=== PATIENT | female | born 1955 | race Caucasian/White ===

== ENCOUNTER 2017-02-28 20:56 | Inpatient (IN) | payer MEDICAID, OTHER ==
--- NOTE | 2017-02-28 22:13 | ED PDOC ---
"Arrival/HPI <Jesse Craig - Last Filed: 02/28/17 23:20> - General Historian: Patient <Willie Beauchamp - Last Filed: 03/01/17 17:12> - General Chief Complaint: Abdominal Pain Time Seen by Provider: 02/28/17 21:49 - History of Present Illness Narrative History of Present Illness (Text): 02/28/17 21:55 61 y/o female, pmh including htn/hypothyroidism, allergic to nsaids/albuterol, c /o epigastric and rt. sided abdominal pain started this morning. Pt. stated that she woke up this morning at 4am with rt. sided abdominal pain, associated with multiple episodes of diarrhea, no fever or chills, no chest pain or shortness of breath, no rash, no numbness or tingling, no other medical or psychological complaints. (Willie Beauchamp) Past Medical History - Provider Review Nursing Documentation Reviewed: Yes - Cardiac Hx Cardiac Disorders: Yes Hx Hypertension: Yes - Endocrine/Metabolic Hx Endocrine Disorders: Yes Hx Hypothyroidism: Yes - Psychiatric Hx Substance Use: No <Willie Beauchamp - Last Filed: 03/01/17 17:12> Family/Social History - Physician Review Nursing Documentation Reviewed: Yes Family/Social History: Unknown Family HX Smoking Status: Never Smoked Hx Alcohol Use: No Hx Substance Use: No <Willie Beauchamp - Last Filed: 03/01/17 17:12> Allergies/Home Meds <Jesse Craig - Last Filed: 02/28/17 23:20> <Willie Beauchamp - Last Filed: 03/01/17 17:12> Allergies/Adverse Reactions: Allergies albuterol [From Ventolin HFA] Allergy (Verified 02/28/17 21:10) SHORTNESS OF BREATH aspirin Allergy (Verified 02/28/17 21:10) SHORTNESS OF BREATH ibuprofen Allergy (Verified 02/28/17 21:10) RASH Home Medications: Home Meds Medication Instructions Recorded Confirmed Levothyroxine [Synthroid] 125 mcg PO DAILY 02/28/17 02/28/17 Losartan Potassium 50 mg PO BID 02/28/17 02/28/17 Review of Systems - Review of Systems Constitutional: absent: Fatigue, Fevers Eyes: absent: Vision Changes ENT: absent: Hearing Changes Respiratory: absent: SOB, Cough Cardiovascular: absent: Chest Pain Gastrointestinal: Abdominal Pain, Diarrhea, Nausea, Vomiting. absent: Constipation Skin: absent: Rash, Pruritis Neurological: absent: Headache, Dizziness Psychiatric: absent: Anxiety, Depression <Willie Beauchamp - Last Filed: 03/01/17 17:12> Physical Exam Vital Signs Reviewed: Yes Temperature: Afebrile Blood Pressure: Normal Pulse: Regular Respiratory Rate: Normal Appearance: Positive for: Well-Appearing, Non-Toxic, Comfortable Pain Distress: Mild Mental Status: Positive for: Alert and Oriented X 3 - Systems Exam Head: Present: Atraumatic, Normocephalic Pupils: Present: PERRL Extroacular Muscles: Present: EOMI Conjunctiva: Present: Normal Mouth: Present: Moist Mucous Membranes Neck: Present: Normal Range of Motion Respiratory/Chest: Present: Clear to Auscultation, Good Air Exchange. No: Respiratory Distress, Accessory Muscle Use Cardiovascular: Present: Regular Rate and Rhythm, Normal S1, S2. No: Murmurs Abdomen: Present: Tenderness (+Rt. sided abdomen ), Normal Bowel Sounds. No: Distention, Peritoneal Signs, Rebound, Guarding Back: Present: Normal Inspection Upper Extremity: Present: Normal Inspection. No: Cyanosis, Edema Lower Extremity: Present: Normal Inspection. No: Edema Neurological: Present: GCS=15, Speech Normal, Motor Func Grossly Intact, Gait Normal, Memory Normal Skin: Present: Warm, Dry, Normal Color. No: Rashes Psychiatric: Present: Alert, Oriented x 3, Normal Insight, Normal Concentration <Willie Beauchamp - Last Filed: 03/01/17 17:12> Vital Signs Temp Pulse Resp BP Pulse Ox 03/01/17 03:20 84 18 135/82 98 02/28/17 23:01 85 18 135/78 98 02/28/17 21:13 98.7 F 86 20 134/88 97 Medical Decision Making <Jesse Craig - Last Filed: 02/28/17 23:20> - RAD Interpretation Underground Repairer: Radiologist - EKG Interpretation Interpreted by ED Physician: Yes Type: 12 lead EKG Comparison: No previous EKG avail. <Willie Beauchamp - Last Filed: 03/01/17 17:12> ED Course and Treatment: 02/28/17 22:21 -Labs/ua/lipase/cardiac enzyme -EKG -CXR -CT Abdomen and pelvis -Gallbladder sonogram -IVF/pepcid -Observe and reassess 03/01/17 02:57 -EKG: NSR @ 85 BPM, no ST elevation or depression, T wave inversion on lead I and aVL -Gallbladder sonogram: Cholelithiasis and gallbladder wall thickening. No sonographic London's sign. Correlate clinically. -Chest xray show no active disease -CT abdomen and pelvis show: Partially contracted gallbladder with large gallstone gallbladder wall thickening and pericholecystic inflammatory changes representing acute on chronic cholecystitis in view of patient's right-sided pain. Correlation with patient's clinical data is recommended. -IV zosyn ordered. -Medicine and surgical team paged. 03/01/17 03:03 -I spoke to Dr. Craig about this case in detail, agreed on treatment and admission plan. -I spoke to DR. White and medical secretary teacher Dr. Christopher, will come to evaluate the patient. -Attempted to call the assembler surgical garment and surgical attending Dr. Barakat but no one call back. 03/01/17 03:47 -residential mortgage manager Dr. Livier rader called back, discussed about the case, awared of the case, discussed that she will notify him as we are unable to get a hold of the surgical attending, Dr. Craig awared. (Willie Beauchamp) - Lab Interpretations Lab Results: 02/28/17 22:13 02/28/17 22:13 Lab Results 02/28/17 22:13: WBC 8.8, RBC 4.55, Hgb 12.7, Hct 39.8, MCV 87.5, MCH 27.9, MCHC 31.9, RDW 14.0, Plt Count 311, MPV 9.8, Gran % 66.6, Lymph % (Auto) 23.5, [place] % (Auto) 8.8 H, Eos % (Auto) 1.0 L, Baso % (Auto) 0.1, Gran # 5.86, Lymph # 2.1 , [place] # 0.8 H, Eos # 0.1, Baso # 0.01 02/28/17 22:13: Sodium 140, Potassium 4.1, Chloride 104, Carbon Dioxide 27, Anion Gap 13, BUN 5 L, Creatinine 0.5 L, Est GFR ( Amer) > 60, Est GFR ( Non-Af Amer) > 60, Random Glucose 126 H, Calcium 9.4, Magnesium 1.8, Total Bilirubin 0.7, AST 24, ALT 25, Alkaline Phosphatase 124, Lactate Dehydrogenase 423, Total Creatine Kinase 42, Troponin I < 0.01, Total Protein 7.8, Albumin 3.7 , Globulin 4.1, Albumin/Globulin Ratio 0.9 L, Lipase 81 - RAD Interpretation Radiology Orders: 02/28/17 22:14 CHEST PORTABLE [RAD] Stat 02/28/17 22:18 GALLBLADDER & COMMON DUCT [US] Stat 03/01/17 01:14 ABDOMEN & PELVIS [ABD & PELVIS IV CONTRAST ONLY] [CT] Stat 02/28/17 22:14 CHEST PORTABLE [RAD] Stat 02/28/17 22:18 GALLBLADDER & COMMON DUCT [US] Stat 02/28/17 22:19 ABDOMEN & PELVIS [ABD PELVIS PO & IV CONTRAST] [CT] Stat Chest xray: no acute findings. Gallbladder sonogram: FINDINGS: Liver: Liver measures 19.5 CM longitudinally. Diffusely increased echogenicity consistent with fatty infiltration. No intrahepatic bile duct dilation. Gallbladder: Cholelithiasis. 3.1 CM gallstone. No sonographic London's sign. Gallbladder wall thickening with the wall measuring up to 4.6 mm in thickness. Common bile duct: Common bile duct measures 6.6 mm. No stones. No dilation. Pancreas: Unremarkable as visualized. Right kidney: Right kidney measures 11.4 CM longitudinally. No stones. No hydronephrosis. IMPRESSION: Cholelithiasis and gallbladder wall thickening. No sonographic London's sign. Correlate clinically. Thank you for allowing us to participate in the care of your patient. Dictated and Authenticated by: Bart Thomas MD 02/28/2017 11:50 PM Eastern Time ([place] & [place]) CT abdomen and pelvis: FINDINGS: Lower thorax: There is groundglass opacity to the lung bases with areas of hyperlucency representing reactive airway disease. Correlation with patient's hydration status versus mild failure is recommended if clinically suspected. Possible small hiatal hernia. ABDOMEN: Liver: Enlarged fatty liver. Gallbladder and bile ducts: Partially contracted gallbladder with large gallstone gallbladder wall thickening and pericholecystic inflammatory changes representing acute on chronic cholecystitis in view of patient's right-sided pain. Correlation with patient's clinical data is recommended. Pancreas: Unremarkable. No mass. No ductal dilation. Spleen: Unremarkable. No splenomegaly. Adrenals: Unremarkable. No mass. Kidneys and ureters: Retroaortic left renal vein.The aorta is normal in caliber and there are no periaortic collections. No hydronephrosis. MEENANELY | Final Radiology Report CONFIDENTIALITY STATEMENT This report is intended only for use by the referring physician, and only in accordance with law. If you received this in error, call [phone]. Page 2 of 2 Stomach and bowel: Unremarkable. No obstruction. No mucosal thickening. Appendix: The appendix is not seen. PELVIS: Bladder: Partially distended bladder. Reproductive: Uterus is seen. ABDOMEN and PELVIS: Intraperitoneal space: Unremarkable. No free air. No significant fluid collection. Bones/joints: There are anterior flowing osteophytes bridging more than 4 vertebral bodies suggestive of dish. No acute fracture. No dislocation. Soft tissues: Nonspecific history of back edema. Nonspecific infiltration of bilateral gluteal subcutaneous soft tissues and suprapubic region. There is a fat-containing umbilical hernia. Vasculature: See above. Lymph nodes: Unremarkable. No enlarged lymph nodes. IMPRESSION: 1. Partially contracted gallbladder with large gallstone gallbladder wall thickening and pericholecystic inflammatory changes representing acute on chronic cholecystitis in view of patient's right-sided pain. Correlation with patient's clinical data is recommended. Thank you for allowing us to participate in the care of your patient. Dictated and Authenticated by: Quintin Huggins MD 03/01/2017 2:30 AM Eastern Time ([place] & [place]) (Willie Beauchamp) - EKG Interpretation EKG Interpretation (Text): 02/28/17 23:03 -EKG: NSR @ 85 BPM, no ST elevation or depression, T wave inversion on lead I and aVL (Willie Beauchamp) - Medication Orders Current Medication Orders: Acetaminophen (Tylenol 325mg Tab) 650 mg PO Q4 PRN PRN Reason: Pain, Mild (1-3) Arformoterol Tartrate (Brovana) 15 mcg IH [id number] [facility] Last Admin: 03/01/17 08:06 Dose: 15 mcg Budesonide (Pulmicort Respules) 0.5 mg IH [id number] JIM Last Admin: 03/01/17 08:06 Dose: 0.5 mg Famotidine (Pepcid) 40 mg PO HS JIM Heparin Sodium (Porcine) (Heparin) 5,000 units SC Q8 JIM PRN Reason: Protocol Last Admin: 03/01/17 05:13 Dose: 5,000 units Subcutaneous Administrations Document 03/01/17 05:13 BN (Rec: 03/01/17 05:[address] [id number] Injection Site MAR Injection Site Right Arm Charges for Administration # of Subcutaneous Administrations 1 Hydralazine HCl (Apresoline) 10 mg IVP Q6 PRN PRN Reason: Systolic Blood Pressure Lactated Ringer's (Lactated Ringer's) 1,000 mls @ 100 mls/hr IV .Q10H [facility] Last Admin: 03/01/17 04:44 Dose: 100 mls/hr eMAR Start Stop Document 03/01/17 04:44 BN (Rec: 03/01/17 04:[address] [id number]) Intravenous Solution Start Date 03/01/17 Start Time 04:44 Ceftriaxone Sodium (Rocephin 2 Gm Ivpb) 2 gm in 100 mls @ 100 mls/hr IVPB DAILY JIM PRN Reason: Protocol Last Admin: 03/01/17 11:07 Dose: 100 mls/hr eMAR Start Stop Document 03/01/17 11:07 TERE (Rec: 03/01/17 11:[address] [id number]) Intravenous Solution Start Date 03/01/17 Start Time 11:07 Levothyroxine Sodium (Synthroid) 125 mcg PO ACB [facility] Last Admin: 03/01/17 09:25 Dose: 125 mcg Losartan Potassium (Cozaar) 50 mg PO BID JIM Last Admin: 03/01/17 09:26 Dose: 50 mg Metronidazole (Flagyl) 500 mg PO Q8 JIM PRN Reason: Protocol Last Admin: 03/01/17 09:25 Dose: 500 mg Morphine Sulfate (Morphine) 2 mg IVP Q4H PRN PRN Reason: Pain, moderate (4-7) Morphine Sulfate (Morphine) 4 mg IVP Q4H PRN PRN Reason: Pain, severe (8-10) Discontinued Medications Famotidine (Pepcid) 20 mg IVP STAT STA Stop: 02/28/17 22:15 Last Admin: 02/28/17 23:52 Dose: 20 mg IVP Administration Document 02/28/17 23:52 SS (Rec: 02/28/17 23:52 SS [id number]) Charges for Administration # of IVP Administrations 1 Sodium Chloride (Sodium Chloride 0.9%) 1,000 mls @ 100 mls/hr IV .Q10H JIM Last Admin: 02/28/17 23:53 Dose: 100 mls/hr eMAR Start Stop Document 02/28/17 23:53 SS (Rec: 02/28/17 23:53 SS [id number]) Intravenous Solution Start Date 02/28/17 Start Time 23:53 Piperacillin Sod/Tazobactam Sod (Zosyn 3.375 In Ns 100ml) 100 mls @ 200 mls/hr IVPB STAT STA PRN Reason: Protocol Stop: 03/01/17 03:00 Last Admin: 03/01/17 03:17 Dose: 200 mls/hr eMAR Start Stop Document 03/01/17 03:17 SS (Rec: 03/01/17 03:18 SS [id number]) Intravenous Solution Start Date 03/01/17 Start Time 03:18 End Date 03/01/17 End time 03:48 Total Infusion Time 30 Morphine Sulfate (Morphine) 4 mg IVP STAT STA Stop: 03/01/17 03:06 - PA / KNITTING SUPERVISOR / Resident Statement MARC has reviewed & agrees with the documentation as recorded. <Jesse Craig - Last Filed: 02/28/17 23:20> - PA / KNITTING SUPERVISOR / Resident Statement MD/DO has reviewed & agrees with the documentation as recorded. <Willie Beauchamp - Last Filed: 03/01/17 17:12> Disposition/Present on Arrival <Jesse Craig - Last Filed: 02/28/17 23:20> - Present on Arrival Any Indicators Present on Arrival: No History of DVT/PE: No History of Uncontrolled Diabetes: No Urinary Catheter: No History of Decub. Ulcer: No History Surgical Site Infection Following: None - Disposition Have Diagnosis and Disposition been Completed?: Yes Disposition Time: 02:35 Patient Plan: Admission <Willie Beauchamp - Last Filed: 03/01/17 17:12> - Disposition Diagnosis: Cholecystitis Disposition: HOSPITALIZED Patient Problems: Current Active Problems Problem Status Onset Cholecystitis Acute Condition: STABLE"
[2017-02-28] MEDS ORDERED: Sodium Chloride 0.9% 1,000 ML IV SCH (22:15)
[2017-02-28] MEDS ORDERED: Iohexol 240 (50 ml) ONE (22:23)
[2017-02-28 23:01] LABS: BASO # 0.01 K/mm3 (0.0-2.0); BASO % 0.1 % (0.0-3.0); EOS # 0.1 (0.0-0.7); GRAN # 5.86 (1.4-6.5); GRAN % 66.6 % (50.0-68.0); HEMOGLOBIN 12.7 g/dL (12.0-16.0); LYMPH # 2.1 (1.2-3.4); LYMPH % 23.5 % (22.0-35.0); MEAN CELL VOLUME 87.5 fl (80.0-105.0); MEAN CORPUSCULAR HEMOGLOBIN 27.9 pg (25.0-35.0); MEAN CORPUSCULAR HGB CONC 31.9 g/dl (31.0-37.0); MEAN PLATELET VOLUME 9.8 fl (7.0-11.0); MONO # 0.8 (0.1-0.6); MONO % 8.8 % (1.0-6.0); RBC 4.55 10^6/uL (3.5-6.1); WHITE BLOOD COUNT 8.8 10^3/ul (4.5-11.0)
[2017-02-28 23:12] LABS: ALB/GLOB RATIO 0.9 (1.1-1.8); ALBUMIN 3.7 g/dL (3.0-4.8); ALT/SGPT 25 U/L (7-56); AST/SGOT 24 U/L (14-36); BLOOD UREA NITROGEN 5 mg/dL (7-21); CALCIUM 9.4 mg/dL (8.4-10.5); GFR AFRICAN-AMERICAN > 60; GFR NON-AFRICAN AMERICAN > 60; LIPASE 81 U/L (23-300); MAGNESIUM 1.8 mg/dL (1.7-2.2)
[2017-02-28 23:25] LABS: TROPONIN I < 0.01 ng/mL
--- NOTE | 2017-02-28 23:50 | US ---
EXAM: US Abdomen Limited, Right Upper Quadrant CLINICAL HISTORY: 61 years old, female; Pain; Abdominal pain; Generalized; Additional info: Ruq pain TECHNIQUE: Real-time ultrasound of the right upper quadrant with image documentation. COMPARISON: No relevant prior studies available. FINDINGS: Liver: Liver measures 19.5 CM longitudinally. Diffusely increased echogenicity consistent with fatty infiltration. No intrahepatic bile duct dilation. Gallbladder: Cholelithiasis. 3.1 CM gallstone. No sonographic London's sign. Gallbladder wall thickening with the wall measuring up to 4.6 mm in thickness. Common bile duct: Common bile duct measures 6.6 mm. No stones. No dilation. Pancreas: Unremarkable as visualized. Right kidney: Right kidney measures 11.4 CM longitudinally. No stones. No hydronephrosis. IMPRESSION: Cholelithiasis and gallbladder wall thickening. No sonographic London's sign. Correlate clinically.
[2017-03-01] MEDS ORDERED: Iohexol 350 MG/100 ML VIAL ONE (00:57)
[2017-03-01] MEDS ORDERED: Piperacillin/Tazobact 3.375 gm 100 ML IVPB STA (02:31)
--- NOTE | 2017-03-01 03:04 | CP.PCM.HP ---
<Keron Coulter - Last Filed: 03/01/17 04:09> History of Present Illness - History of Present Illness History of Present Illness: CC: Abdominal Pain Subjective: HPI: Patient is a 61 year old male with past medical history of hypertension, hypothyroidism, and asthma who presents to the emergency department for evaluation and treatment of abdominal pain which began yesterday morning with no specific provoking event. The pain originates in the right upper quadrant/ flank region and radiates to the right lower quadrant. It is characterized as being a "tightness". Denies association with PO intake. Admits to associated 12 bout of nonbloody bowel movements. States that she has had this type of pain before in [place] which resolved with no intervention at that time. Denies sick contacts. Patient denies intractable headache, fever, chills, dizziness, blurry vision, ringing in the ears, chest pain, shortness of breath, nausea, vomiting, constipation, and urinary symptoms. ROS: 12 point review of systems negative except as indicated in HPI PMHx: hypertension, hypothyroidism, and asthma PSHx: denies Family Hx: noncontributory Social Hx: denies ETOH use, denies tobacco use, denies illicit drug use Medications: Please see medication reconciliation PMD: does not have a PMD in [facility]: brings medications from [place] in bulk when visiting [place] Physical Examination: - Constitutional Appears: Non-toxic, No Acute Distress - Head Exam Head Exam: atraumatic, normocephalic - Eye Exam Eye Exam: Normal appearance, PERRL. absent: Scleral icterus - ENT Exam ENT Exam: Mucous Membranes Moist - Neck Exam Neck exam: Normal Inspection - Respiratory Exam Respiratory Exam: Normal Breathing Pattern - Cardiovascular Exam Cardiovascular Exam: +S1, +S2. absent: Gallop, JVD - GI/Abdominal Exam GI & Abdominal Exam: Normal Bowel Sounds, + murphys sign absent: Distended, Guarding, Pulsatile Mass, Rebound, Rigid - Extremities Exam Extremities exam: Negative for: calf tenderness - Neurological Exam Neurological exam: Patient is awake, alert, responds to verbal stimuli, answers questions appropriately, follows commands, and moves extremities past midline - Psychiatric Exam Psychiatric exam: Normal Affect, Normal Mood - Skin Skin Exam: warm and dry Assessment and Plan: Patient is a 61 year old male with past medical history of hypertension and hypothyroidism who presents to the emergency department for evaluation and treatment of abdominal pain. Patient was given morphine, IVF, and zosyn in the ED thus far. Abdominal Pain - secondary to cholecystitis - abdominal ultrasound- Cholelithiasis and gallbladder wall thickening. No sonographic London's sign - abdomen/pelvis CT ordered by ED physician-Partially contracted gallbladder with large gallstone gallbladder wall thickening and pericholecystic inflammatory changes representing acute on chronic cholecystitis - NPO - LR NS @100 - pain control- tylenol mild pain, morphine 2 mg q4h moderate pain, morphine 4mg q4h prn severe pain - flagyl 500mg q8 - general surgery consulted- appreciate recommendations Hx of Htn - c/w home losartan - hydralazine 5mg IV q6 prn SBP > 180, holding parameters- do not administer if HR is > 100 bpm Hx of Hypothyrodism - c/w home levothyroxine - TSH pending Hx of Asthma - allergic to albuterol - c/w fluticasone and salmeterol Prophylaxis - DVT ppx- subq heparin as per rosalind prediction score - GI ppx- famotidine Patient case discussed with and plan approved by attending physician. 03/01/17 03:00 Present on Admission - Present on Admission Any Indicators Present on Admission: No Past Patient History - Past Social History Smoking Status: Never Smoked - CARDIAC Hx Cardiac Disorders: Yes Hx Hypertension: Yes - ENDOCRINE/METABOLIC Hx Endocrine Disorders: Yes Hx Hypothyroidism: Yes - PSYCHIATRIC Hx Substance Use: No Meds Allergies/Adverse Reactions: Allergies Allergy/AdvReac Type Severity Reaction Status Date / Time albuterol [From Ventolin HFA] Allergy SHORTNESS Verified 02/28/17 21:10 OF BREATH aspirin Allergy SHORTNESS Verified 02/28/17 21:10 OF BREATH ibuprofen Allergy RASH Verified 02/28/17 21:10 Results - Vital Signs Recent Vital Signs: Last Vital Signs Temp 98.7 F 02/28/17 21:13 Pulse 86 02/28/17 21:13 Resp 20 02/28/17 21:13 BP 134/88 02/28/17 21:13 Pulse Ox 97 02/28/17 21:13 - Labs Result Diagrams: 02/28/17 22:13 02/28/17 22:13 Labs: Laboratory Results - last 24 hr 02/28/17 02/28/17 22:13 22:13 WBC 8.8 RBC 4.55 Hgb 12.7 Hct 39.8 MCV 87.5 MCH 27.9 MCHC 31.9 RDW 14.0 Plt Count 311 MPV 9.8 Gran % 66.6 Lymph % (Auto) 23.5 [place] % (Auto) 8.8 H Eos % (Auto) 1.0 L Baso % (Auto) 0.1 Gran # 5.86 Lymph # 2.1 [place] # 0.8 H Eos # 0.1 Baso # 0.01 Sodium 140 Potassium 4.1 Chloride 104 Carbon Dioxide 27 Anion Gap 13 BUN 5 L Creatinine 0.5 L Est GFR ( Amer) > 60 Est GFR (Non-Af Amer) > 60 Random Glucose 126 H Calcium 9.4 Magnesium 1.8 Total Bilirubin 0.7 AST 24 ALT 25 Alkaline Phosphatase 124 Lactate Dehydrogenase 423 Total Creatine Kinase 42 Troponin I < 0.01 Total Protein 7.8 Albumin 3.7 Globulin 4.1 Albumin/Globulin Ratio 0.9 L Lipase 81 <uJan Antonio White Q - Last Filed: 03/01/17 05:06> Results - Vital Signs Recent Vital Signs: Last Vital Signs Temp 98.7 F 02/28/17 21:13 Pulse 84 03/01/17 03:20 Resp 18 03/01/17 03:20 BP 135/82 03/01/17 03:20 Pulse Ox 98 03/01/17 03:20 - Labs Result Diagrams: 02/28/17 22:13 02/28/17 22:13 Attending/Attestation - Attestation I have personally seen and examined this patient.: Yes I have fully participated in the care of the patient.: Yes I have reviewed all pertinent clinical information: Yes
[2017-03-01] MEDS ORDERED: Morphine 4 mg/ml ISec IVP STA (03:05)
[2017-03-01] MEDS ORDERED: Morphine 2 mg/ml ISec IVP PRN (03:47)
[2017-03-01] MEDS ORDERED: Morphine 5 MG/ML SYRINGE IVP PRN (03:48)
[2017-03-01] MEDS ORDERED: Lactated Ringer's 1,000 ML IV SCH (04:00)
[2017-03-01] MEDS: Lactated Ringer's 1,000 ML IV SCH (04:44)
[2017-03-01] MEDS: Budesonide 0.5 mg/2 ml Inhal Susp UD IH SCH ×2 (08:06→19:31)
[2017-03-01] MEDS: Arformoterol 15 mcg/2 ml Inh Sol IH SCH ×2 (08:06→19:31)
[2017-03-01 08:28] LABS: BASO # 0.02 K/mm3 (0.0-2.0); BASO % 0.2 % (0.0-3.0); EOS # 0.1 (0.0-0.7); EOS % 0.9 % (1.5-5.0); GRAN # 6.28 (1.4-6.5); GRAN % 63.9 % (50.0-68.0); HEMOGLOBIN 12.4 g/dL (12.0-16.0); LYMPH # 2.7 (1.2-3.4); LYMPH % 27.5 % (22.0-35.0); MEAN CELL VOLUME 88.1 fl (80.0-105.0); MEAN CORPUSCULAR HEMOGLOBIN 27.3 pg (25.0-35.0); MEAN PLATELET VOLUME 9.6 fl (7.0-11.0); MONO # 0.7 (0.1-0.6); MONO % 7.5 % (1.0-6.0); RBC 4.54 10^6/uL (3.5-6.1); WHITE BLOOD COUNT 9.8 10^3/ul (4.5-11.0)
[2017-03-01 08:37] LABS: ALB/GLOB RATIO 0.9 (1.1-1.8); ALBUMIN 3.9 g/dL (3.0-4.8); ALT/SGPT 28 U/L (7-56); AST/SGOT 24 U/L (14-36); BLOOD UREA NITROGEN 5 mg/dL (7-21); CALCIUM 9.6 mg/dL (8.4-10.5); GFR AFRICAN-AMERICAN > 60; GFR NON-AFRICAN AMERICAN > 60; HDL CHOLESTEROL 34 mg/dL (29-60)
[2017-03-01 08:48] LABS: LDL CHOLESTEROL 72 mg/dL (0-129)
[2017-03-01] MEDS: Levothyroxine 125 MCG TAB PO SCH (09:25)
--- NOTE | 2017-03-01 09:42 | CT ---
PROCEDURE: CT abdomen pelvis dated 03/01/2017 HISTORY: Right sided abdominal pain COMPARISON: Correlation made with gallbladder ultrasound obtained 02/28/2017 TECHNIQUE: Contiguous helical/transaxial images of the abdomen and pelvis. Oral contrast was administered. No IV contrast given. Coronal and Sagittal reformats generated. Radiation dose: Total exam DLP = 1124.02 mGy-cm. This CT exam was performed using one or more of the following dose reduction techniques: Automated exposure control, adjustment of the mA and/or kV according to patient size, and/or use of iterative reconstruction technique. Contrast dose: 96 cc Omnipaque 350 contrast material a FINDINGS: LOWER THORAX: There is elevation right hemidiaphragm mild possibly due to eventration. Mild passive atelectasis both lower lung winn. There also appears to be some linear scarring/ atelectasis in the lingular region. No evidence of effusion or basilar pneumothorax. Heart size is within range of normal. No evidence of significant pericardial effusion. . Tiny hiatal hernia. LIVER: Liver is mildly enlarged measuring nearly 20 cm in CC dimension. Liver demonstrates very minor fatty hepatic infiltration without masses collections or calcifications. . Portal and splenic veins are opacified. GALLBLADDER AND BILE DUCTS: There is an intraluminal gallbladder calculus with wall thickening and mild pericholecystic infiltration changes. Findings may represent acute or chronic cholecystitis. Clinical correlation recommended. . PANCREAS: Unremarkable. No mass. No ductal dilatation. SPLEEN: Spleen is borderline enlarged measuring approximately 12.5 cm in AP dimension. ADRENALS: No adrenal lesions seen. . KIDNEYS AND URETERS: Kidneys demonstrate symmetric nephrograms. No evidence of nephrolithiasis or hydronephrosis. Retro aortic left renal vein BLADDER: Urinary bladder is incompletely distended which may account for slight thick-walled appearance. Possibility of a cystitis not excluded. . REPRODUCTIVE: Unremarkable as visualized. APPENDIX: Appendix not seen with complete certainty however no obvious inflammatory changes right lower quadrant of the abdomen. BOWEL: Evaluation of the bowel is somewhat limited due to partial opacification. Stomach is incompletely distended which its felt to account for slight thick-walled appearance. Visualized loops of small bowel exhibit abnormal contour and caliber. No evidence acute mechanical small bowel obstruction. Oral contrast material has extended into the colon to approximately the level of the mid descending colon region. . No definitive evidence of abnormal mural wall thickening. . PERITONEUM: Unremarkable. No fluid collection. No free air. . Small fat containing umbilical hernia. LYMPH NODES: Unremarkable. No enlarged lymph nodes. VASCULATURE: Unremarkable. No aortic aneurysm. BONES: Mild multilevel degenerative spondylosis of the lower thoracic and lumbar spine (suspected DISH involving several lower thoracic segments). There are no acute compression fractures no retropulsed fragments are over the OTHER FINDINGS: Note made of some mild infiltration changes within subcutaneous fat lower anterior abdominal wall and the bilateral gluteal regions nonspecific. IMPRESSION: Cholelithiasis with mild gallbladder wall thickening in some vague infiltration changes in the adjacent mesenteric. Findings may represent acute or chronic cholecystitis. Clinical correlation recommended. Mild hepatomegaly with some minor fatty hepatic infiltration. Borderline splenomegaly. Preliminary results provided by overnight radiology service
--- NOTE | 2017-03-01 09:56 | CP.PCM.CON ---
<Livier Roberts - Last Filed: 03/01/17 10:22> History of Present Illness - History of Present Illness History of Present Illness: GENERAL SURGERY CONSULT NOTE FOR DR. CUNHA 61yo F with PMHx of HTN, hypothyroidism, asthma presents to the ED with abdominal pain. The pain began yesterday and is located in the RUQ. It is not associated with eating. She denies nausea or vomiting but had 12 episodes of non -bloody BMs yesterday. She has had similar pain in the past in [place] which resolved without any intervention. PMHx: HTN, hypothyroidism, asthma Surgeries: none Allergies: albuterol, aspirin, ibuprofen Social history: denies ETOH use, tobacco use, illicit drug use Review of Systems - Review of Systems All systems: reviewed and no additional remarkable complaints except (as per HPI ) Past Patient History - Past Social History Smoking Status: Never Smoked - CARDIAC Hx Cardiac Disorders: Yes Hx Hypertension: Yes - PULMONARY Hx Respiratory Disorders: Yes Hx Asthma: Yes - ENDOCRINE/METABOLIC Hx Endocrine Disorders: Yes Hx Hypothyroidism: Yes - MUSCULOSKELETAL/RHEUMATOLOGICAL Hx Falls: No - PSYCHIATRIC Hx Substance Use: No Meds Allergies/Adverse Reactions: Allergies Allergy/AdvReac Type Severity Reaction Status Date / Time albuterol [From Ventolin HFA] Allergy SHORTNESS Verified 02/28/17 21:10 OF BREATH aspirin Allergy SHORTNESS Verified 02/28/17 21:10 OF BREATH ibuprofen Allergy RASH Verified 02/28/17 21:10 - Medications Medications: Current Medications Acetaminophen (Tylenol 325mg Tab) 650 mg PO Q4 PRN PRN Reason: Pain, Mild (1-3) Arformoterol Tartrate (Brovana) 15 mcg IH [id number] [facility] Last Admin: 03/01/17 08:06 Dose: 15 mcg Budesonide (Pulmicort Respules) 0.5 mg IH [id number] [facility] Last Admin: 03/01/17 08:06 Dose: 0.5 mg Famotidine (Pepcid) 40 mg PO HS [facility] Heparin Sodium (Porcine) (Heparin) 5,000 units SC Q8 [facility] PRN Reason: Protocol Last Admin: 03/01/17 05:13 Dose: 5,000 units Hydralazine HCl (Apresoline) 10 mg IVP Q6 PRN PRN Reason: Systolic Blood Pressure Lactated Ringer's (Lactated Ringer's) 1,000 mls @ 100 mls/hr IV .Q10H [facility] Last Admin: 03/01/17 04:44 Dose: 100 mls/hr Ceftriaxone Sodium (Rocephin 2 Gm Ivpb) 2 gm in 100 mls @ 100 mls/hr IVPB DAILY [facility] PRN Reason: Protocol Levothyroxine Sodium (Synthroid) 125 mcg PO ACB [facility] Last Admin: 03/01/17 09:25 Dose: 125 mcg Losartan Potassium (Cozaar) 50 mg PO BID [facility] Last Admin: 03/01/17 09:26 Dose: 50 mg Metronidazole (Flagyl) 500 mg PO Q8 [facility] PRN Reason: Protocol Last Admin: 03/01/17 09:25 Dose: 500 mg Morphine Sulfate (Morphine) 2 mg IVP Q4H PRN PRN Reason: Pain, moderate (4-7) Morphine Sulfate (Morphine) 4 mg IVP Q4H PRN PRN Reason: Pain, severe (8-10) Physical Exam - Constitutional Appears: Well, Non-toxic, No Acute Distress - Head Exam Head Exam: ATRAUMATIC, NORMAL INSPECTION - Eye Exam Eye Exam: EOMI, Normal appearance - Respiratory Exam Respiratory Exam: NORMAL BREATHING PATTERN. absent: Respiratory Distress - Cardiovascular Exam Cardiovascular Exam: +S1, +S2 - GI/Abdominal Exam GI & Abdominal Exam: Soft, Tenderness (tender in RUQ). absent: Diminished Bowel Sounds, Distended, Firm, Guarding, Rebound, Rigid - Extremities Exam Additional comments: +1 pitting edema in bilateral LE - Neurological Exam Neurological exam: Alert, CN II-XII Intact, Oriented x3 - Psychiatric Exam Psychiatric exam: Normal Affect, Normal Mood Results - Vital Signs Recent Vital Signs: Last Vital Signs Temp 98.3 F 03/01/17 07:56 Pulse 83 03/01/17 08:09 Resp 20 03/01/17 07:56 BP 129/54 L 03/01/17 07:56 Pulse Ox 100 03/01/17 07:56 - Labs Result Diagrams: 03/01/17 08:00 03/01/17 08:00 Labs: Laboratory Results - last 24 hr 03/01/17 03/01/17 03/01/17 08:00 08:00 08:00 WBC 9.8 RBC 4.54 Hgb 12.4 Hct 40.0 MCV 88.1 MCH 27.3 MCHC 31.0 RDW 14.0 Plt Count 332 MPV 9.6 Gran % 63.9 Lymph % (Auto) 27.5 Crosby % (Auto) 7.5 H Eos % (Auto) 0.9 L Baso % (Auto) 0.2 Gran # 6.28 Lymph # 2.7 Crosby # 0.7 H Eos # 0.1 Baso # 0.02 Sodium 141 Potassium 4.2 Chloride 103 Carbon Dioxide 28 Anion Gap 14 BUN 5 L Creatinine 0.5 L Est GFR ( Amer) > 60 Est GFR (Non-Af Amer) > 60 Random Glucose 102 Calcium 9.6 Total Bilirubin 0.8 AST 24 ALT 28 Alkaline Phosphatase 128 H Total Protein 8.2 Albumin 3.9 Globulin 4.3 Albumin/Globulin Ratio 0.9 L Triglycerides 101 Cholesterol 128 L LDL Cholesterol Direct 72 HDL Cholesterol 34 TSH 3rd Generation 3.80 Assessment & Plan - Assessment and Plan (Free Text) Assessment: 61yo F with PMHx of HTN, hypothyroidism, asthma presents to the ED with abdominal pain and was admitted for symptomatic cholelithiasis. - Afebrile, VSS - No leukocytosis, Bilirubin and LFTs WNL - US: cholelithiasis, 3.1cm gallstone. No sonographic [place] sign, GB wall thickening 4.6mm, CBD 6.6mm - Patient tender in RUQ and had similar episodes in the past - OR today for laparoscopic cholecystectomy, possible open - NPO - Hold heparin - Discussed plan with Dr. Guerline Roberts PGY-3 <Ousmane Cunha - Last Filed: 03/01/17 20:12> Meds - Medications Medications: Current Medications Acetaminophen (Tylenol 325mg Tab) 650 mg PO Q4 PRN PRN Reason: Pain, Mild (1-3) Arformoterol Tartrate (Brovana) 15 mcg IH [id number] [facility] Last Admin: 03/01/17 19:31 Dose: 15 mcg Budesonide (Pulmicort Respules) 0.5 mg IH [id number] [facility] Last Admin: 03/01/17 19:31 Dose: 0.5 mg Famotidine (Pepcid) 40 mg PO HS [facility] Heparin Sodium (Porcine) (Heparin) 5,000 units SC Q8 [facility] PRN Reason: Protocol Last Admin: 03/01/17 05:13 Dose: 5,000 units Hydralazine HCl (Apresoline) 10 mg IVP Q6 PRN PRN Reason: Systolic Blood Pressure Lactated Ringer's (Lactated Ringer's) 1,000 mls @ 100 mls/hr IV .Q10H [facility] Last Admin: 03/01/17 04:44 Dose: 100 mls/hr Ceftriaxone Sodium (Rocephin 2 Gm Ivpb) 2 gm in 100 mls @ 100 mls/hr IVPB DAILY [facility] PRN Reason: Protocol Last Admin: 03/01/17 11:07 Dose: 100 mls/hr Levothyroxine Sodium (Synthroid) 125 mcg PO ACB [facility] Last Admin: 03/01/17 09:25 Dose: 125 mcg Losartan Potassium (Cozaar) 50 mg PO BID [facility] Last Admin: 03/01/17 09:26 Dose: 50 mg Metronidazole (Flagyl) 500 mg PO Q8 [facility] PRN Reason: Protocol Last Admin: 03/01/17 09:25 Dose: 500 mg Morphine Sulfate (Morphine) 2 mg IVP Q4H PRN PRN Reason: Pain, moderate (4-7) Morphine Sulfate (Morphine) 4 mg IVP Q4H PRN PRN Reason: Pain, severe (8-10) Results - Vital Signs Recent Vital Signs: Last Vital Signs Temp 98.7 F 03/01/17 16:00 Pulse 84 03/01/17 16:00 Resp 18 03/01/17 16:00 BP 120/67 03/01/17 16:00 Pulse Ox 99 03/01/17 16:00 - Labs Result Diagrams: 03/01/17 08:00 03/01/17 08:00 Labs: Laboratory Results - last 24 hr 03/01/17 03/01/17 03/01/17 08:00 08:00 08:00 WBC 9.8 RBC 4.54 Hgb 12.4 Hct 40.0 MCV 88.1 MCH 27.3 MCHC 31.0 RDW 14.0 Plt Count 332 MPV 9.6 Gran % 63.9 Lymph % (Auto) 27.5 Crosby % (Auto) 7.5 H Eos % (Auto) 0.9 L Baso % (Auto) 0.2 Gran # 6.28 Lymph # 2.7 Crosby # 0.7 H Eos # 0.1 Baso # 0.02 PT INR APTT Sodium 141 Potassium 4.2 Chloride 103 Carbon Dioxide 28 Anion Gap 14 BUN 5 L Creatinine 0.5 L Est GFR ( Amer) > 60 Est GFR (Non-Af Amer) > 60 Random Glucose 102 Hemoglobin A1c 6.0 Calcium 9.6 Total Bilirubin 0.8 AST 24 ALT 28 Alkaline Phosphatase 128 H Total Protein 8.2 Albumin 3.9 Globulin 4.3 Albumin/Globulin Ratio 0.9 L Triglycerides 101 Cholesterol 128 L LDL Cholesterol Direct 72 HDL Cholesterol 34 TSH 3rd Generation 03/01/17 03/01/17 08:00 11:35 WBC RBC Hgb Hct MCV MCH MCHC RDW Plt Count MPV Gran % Lymph % (Auto) Crosby % (Auto) Eos % (Auto) Baso % (Auto) Gran # Lymph # Crosby # Eos # Baso # PT 13.0 H INR 1.13 H APTT 32.9 Sodium Potassium Chloride Carbon Dioxide Anion Gap BUN Creatinine Est GFR ( Amer) Est GFR (Non-Af Amer) Random Glucose Hemoglobin A1c Calcium Total Bilirubin AST ALT Alkaline Phosphatase Total Protein Albumin Globulin Albumin/Globulin Ratio Triglycerides Cholesterol LDL Cholesterol Direct HDL Cholesterol TSH 3rd Generation 3.80 Assessment & Plan - Assessment and Plan (Free Text) Assessment: Patient was seen, evaluated and examined by me. I agree with the assessment and plan as per the resident's note.We'll proceed to the operating, room if patient is medically cleared.
[2017-03-01] MEDS ORDERED: Fluticasone-Salmeterol 250-50mcg Diskus IH SCH (10:00)
--- NOTE | 2017-03-01 11:02 | RAD ---
HISTORY: medical clearance COMPARISON: None available. TECHNIQUE: Chest, one view. FINDINGS: Examination limited by habitus. LUNGS: No focal consolidation. Please note that chest x-ray has limited sensitivity for the detection of pulmonary masses. PLEURA: No significant pleural effusion identified. No definite pneumothorax . CARDIOVASCULAR: Heart size appears within normal limits. Atherosclerotic calcification of the aortic knob. OSSEOUS STRUCTURES: Degenerative changes. VISUALIZED UPPER ABDOMEN: Mild elevation of the right hemidiaphragm. OTHER FINDINGS: None. IMPRESSION: No acute findings identified. See above.
[2017-03-01] MEDS: cefTRIAXone 2 GM IN NS 2 GM/100 ML BAG IVPB SCH (11:07)
[2017-03-01 12:05] LABS: INR 1.13 (0.93-1.08); PARTIAL THROMBOPLASTIN TIME 32.9 Seconds (25.1-36.5)
--- NOTE | 2017-03-01 13:30 | US ---
HISTORY: Leg pain and swelling. Evaluate for DVT PHYSICIAN(S): Dawson Almeida MD. TECHNIQUE: Duplex sonography and color-flow Doppler with graded compression were used to evaluate the deep venous systems of both lower extremities. FINDINGS: The visualized deep venous systems of both lower extremities are sonographically normal and compressible. Normal wave forms and augmentation are seen. There is no sonographic evidence for deep venous thrombosis in the visualized segments of both lower extremities. IMPRESSION: No sonographic evidence for deep venous thrombosis in the visualized segments of both lower extremities.
--- NOTE | 2017-03-01 15:56 | CARD ---
APPROVED REPORT EKG Measurement Heart [id number] 146P [id number] <Conclusion> Normal sinus rhythm Inferior infarct, age undetermined Possible Anterior infarct, age undetermined ST & T wave abnormality, consider lateral ischemia Abnormal ECG
[2017-03-01] MEDS ORDERED: Bupivacaine 0.5% Inj(30mL) ONE (16:41)
[2017-03-01] MEDS ORDERED: Propofol 10 mg/ml Inj (20 ML) ONE (17:46)
[2017-03-01] MEDS ORDERED: Succinylcholine 200 mg/10 ml Inj IV ONE (17:50)
[2017-03-01] MEDS ORDERED: Rocuronium 10 mg/ml (5 ml) ONE (17:50)
[2017-03-01] MEDS ORDERED: Phenylephrine 10 mg/ml Inj ONE (17:50)
[2017-03-01] MEDS ORDERED: Midazolam 2 MG/2 ML VIAL ONE (17:51)
[2017-03-02] MEDS: Lactated Ringer's 1,000 ML IV SCH ×2 (05:49→23:59)
[2017-03-02 06:50] LABS: BASO # 0.01 K/mm3 (0.0-2.0); BASO % 0.1 % (0.0-3.0); EOS # 0.1 (0.0-0.7); EOS % 1.3 % (1.5-5.0); GRAN # 4.45 (1.4-6.5); GRAN % 57.9 % (50.0-68.0); HEMOGLOBIN 11.6 g/dL (12.0-16.0); LYMPH # 2.5 (1.2-3.4); LYMPH % 31.9 % (22.0-35.0); MEAN CELL VOLUME 89.6 fl (80.0-105.0); MEAN CORPUSCULAR HEMOGLOBIN 26.8 pg (25.0-35.0); MEAN CORPUSCULAR HGB CONC 29.9 g/dl (31.0-37.0); MEAN PLATELET VOLUME 9.8 fl (7.0-11.0); MONO # 0.7 (0.1-0.6); MONO % 8.8 % (1.0-6.0); RBC 4.33 10^6/uL (3.5-6.1); WHITE BLOOD COUNT 7.7 10^3/ul (4.5-11.0)
[2017-03-02 07:07] LABS: ALB/GLOB RATIO 0.9 (1.1-1.8); ALBUMIN 3.4 g/dL (3.0-4.8); ALT/SGPT 29 U/L (7-56); AST/SGOT 23 U/L (14-36); BLOOD UREA NITROGEN 6 mg/dL (7-21); CALCIUM 9.3 mg/dL (8.4-10.5); GFR AFRICAN-AMERICAN > 60; GFR NON-AFRICAN AMERICAN > 60
[2017-03-02] MEDS: Budesonide 0.5 mg/2 ml Inhal Susp UD IH SCH (07:41)
[2017-03-02] MEDS: Arformoterol 15 mcg/2 ml Inh Sol IH SCH (07:41)
[2017-03-02] MEDS: Levothyroxine 125 MCG TAB PO SCH (08:33)
--- NOTE | 2017-03-02 09:25 | CP.PCM.PN ---
Subjective - Date & Time of Evaluation Date of Evaluation: 03/02/17 Time of Evaluation: 09:19 - Subjective Subjective: Patient has been seen and examined. No overnight events reported. No fevers overnight. She denies any nausea or vomiting. Cholecystectomy scheduled for either today or tomorrow pending Cardiac clearance. Patient is aware. Objective - Vital Signs/Intake and Output Vital Signs (last 24 hours): Temp Pulse Resp BP Pulse Ox 97.4 F L 86 20 145/74 97 03/02/17 07:30 03/02/17 07:30 03/02/17 07:30 03/02/17 07:30 03/02/17 07:30 Intake and Output: 03/02/17 03/02/17 06:59 18:59 Intake Total 1680 Balance 1680 - Medications Medications: Current Medications Acetaminophen (Tylenol 325mg Tab) 650 mg PO Q4 PRN PRN Reason: Pain, Mild (1-3) Arformoterol Tartrate (Brovana) 15 mcg IH [id number] [facility] Last Admin: 03/02/17 07:41 Dose: 15 mcg Budesonide (Pulmicort Respules) 0.5 mg IH [id number] [facility] Last Admin: 03/02/17 07:41 Dose: 0.5 mg Famotidine (Pepcid) 40 mg PO HS [facility] Last Admin: 03/01/17 21:15 Dose: 40 mg Heparin Sodium (Porcine) (Heparin) 5,000 units SC Q8 [facility] PRN Reason: Protocol Last Admin: 03/01/17 05:13 Dose: 5,000 units Hydralazine HCl (Apresoline) 10 mg IVP Q6 PRN PRN Reason: Systolic Blood Pressure Lactated Ringer's (Lactated Ringer's) 1,000 mls @ 100 mls/hr IV .Q10H [facility] Last Admin: 03/02/17 05:49 Dose: 100 mls/hr Ceftriaxone Sodium (Rocephin 2 Gm Ivpb) 2 gm in 100 mls @ 100 mls/hr IVPB DAILY [facility] PRN Reason: Protocol Last Admin: 03/01/17 11:07 Dose: 100 mls/hr Metronidazole (Flagyl) 500 mg in 100 mls @ 100 mls/hr IVPB Q8 [facility] PRN Reason: Protocol Levothyroxine Sodium (Synthroid) 125 mcg PO ACB [facility] Last Admin: 03/01/17 09:25 Dose: 125 mcg Losartan Potassium (Cozaar) 50 mg PO BID [facility] Last Admin: 03/01/17 09:26 Dose: 50 mg Morphine Sulfate (Morphine) 2 mg IVP Q4H PRN PRN Reason: Pain, moderate (4-7) Morphine Sulfate (Morphine) 4 mg IVP Q4H PRN PRN Reason: Pain, severe (8-10) - Labs Labs: 03/02/17 06:00 03/02/17 06:00 PT 13.0 SECONDS (9.4-12.5) H 03/01/17 11:35 INR 1.13 (0.93-1.08) H 03/01/17 11:35 APTT 32.9 Seconds (25.1-36.5) 03/01/17 11:35 - Additional Findings Additional findings: - Constitutional Appears: Well, Non-toxic, No Acute Distress - Head Exam Head Exam: ATRAUMATIC, NORMAL INSPECTION - Eye Exam Eye Exam: EOMI, Normal appearance - Respiratory Exam Respiratory Exam: NORMAL BREATHING PATTERN. absent: Respiratory Distress - Cardiovascular Exam Cardiovascular Exam: +S1, +S2 - GI/Abdominal Exam GI & Abdominal Exam: Soft, Tenderness (tender in RUQ -Improved). absent: Diminished Bowel Sounds, Distended, Firm, Guarding, Rebound, Rigid - Extremities Exam Additional comments: +1 pitting edema in bilateral LE - Neurological Exam Neurological exam: Alert, CN II-XII Intact, Oriented x3 - Psychiatric Exam Psychiatric exam: Normal Affect, Normal Mood Assessment and Plan - Assessment and Plan (Free Text) Assessment: 61yo F with PMHx of HTN, hypothyroidism, asthma presents to the ED with abdominal pain and was admitted for symptomatic cholelithiasis. Plan: - Afebrile, VSS - No leukocytosis, Bilirubin and LFTs WNL - US: cholelithiasis, 3.1cm gallstone. No sonographic [place] sign, GB wall thickening 4.6mm, CBD 6.6mm - Patient tender in RUQ and had similar episodes in the past. Tenderness improved from yesterday - Per medicine team, Cardio has cleared patient for surgery. - OR today @ 16:30 - NPO - Hold heparin - Further Recs as per Dr. Guerline Khan, PGY-1
[2017-03-02] MEDS: metroNIDAZOLE IV 500 mg/100 ml 500 MG/100 ML BAG IVPB SCH ×3 (10:43→21:26)
--- NOTE | 2017-03-02 11:40 | CARD ---
APPROVED REPORT EXAM: Two-dimensional and M-mode echocardiogram with Doppler and color Doppler. INDICATION Abnormal EKG/Arrhythmia 2D DIMENSIONS Left Atrium (2D)5.0 (1.6-4.0cm)IVSd1.1 (0.7-1.1cm) LVDd4.7 (3.9-5.9cm)PWd1.0 (0.7-1.1cm) LVDs3.2 (2.5-4.0cm)FS (%) 33.3 % LVEF (%)61.8 (>50%) M-Mode DIMENSIONS Aortic Root3.00 (2.2-3.7cm)Aortic Cusp Exc.1.80 (1.5-2.0cm) Aortic Valve AoV Peak Htdiaygd676.0cm/Marta Peak GR.13mmHg Mitral Valve MV E Qeiblxpp19.5cm/sMV A Agsuvvkq54.7cm/sE/A ratio0.9 TDI Lateral E' Peak V8.48cm/sMedial E' Peak V10.10cm/sE/Lateral E'10.9 E/Medial E'9.2 Pulmonary Valve PV Peak Dwfozldv422.0cm/sPV Peak Grad.5mmHg Tricuspid Valve TR Peak Riygaapp967cc/sRAP TUCWWFDE43zcCuTU Peak Gr.33mmHg GUPD61ktRk LEFT VENTRICLE The left ventricle is normal size. There is borderline concentric left ventricular hypertrophy. The left ventricular function is normal. The left ventricular ejection fraction is within the normal range. There is normal LV segmental wall motion. Transmitral Doppler flow pattern is Grade I-abnormal relaxation pattern. RIGHT VENTRICLE The right ventricle is normal size. There is normal right ventricular wall thickness. The right ventricular systolic function is normal. ATRIA The left atrium is mildly dilated. The right atrium is mildly dilated. AORTIC VALVE The aortic valve is normal in structure. No aortic regurgitation is present. There is no aortic valvular stenosis. MITRAL VALVE The mitral valve is normal in structure. Mitral regurgitation is trace. TRICUSPID VALVE The tricuspid valve is normal in structure. There is trace tricuspid regurgitation. There is mild pulmonary hypertension. PULMONIC VALVE The pulmonary valve is normal in structure. There is no pulmonic valvular regurgitation. GREAT VESSELS The aortic root is normal in size. The IVC is normal in size and collapses >50% with inspiration. PERICARDIAL EFFUSION There is no pericardial effusion. <Conclusion> The left ventricle is normal size. There is borderline concentric left ventricular hypertrophy. The left ventricular function is normal. The left ventricular ejection fraction is within the normal range. There is normal LV segmental wall motion. Transmitral Doppler flow pattern is Grade I-abnormal relaxation pattern. There is mild pulmonary hypertension.
[2017-03-02] MEDS: cefTRIAXone 2 GM IN NS 2 GM/100 ML BAG IVPB SCH (11:44)
[2017-03-02] MEDS ORDERED: Alum-Mag Hydrox-Simethicone Susp (30 mL) PO PRN (11:44)
--- NOTE | 2017-03-02 11:54 | CP.PCM.PN ---
<Lisa Stanley - Last Filed: 03/02/17 11:49> Subjective - Date & Time of Evaluation Date of Evaluation: 03/02/17 Time of Evaluation: 07:30 - Subjective Subjective: Lisa Stanley DO PGY1 - IM Progress Note Patient seen and examined at bedside. No events overnight. Patient was scheduled for cholecystectomy yesterday, which was postponed at the last minute due to concerns regarding EKG changes. Yesterday, prior to the surgery, patient denied any chest pain, shortness of breath, diaphoresis, or palpitations. Cardiology was consulted and workup was initiated. Today, patient does report some chest tightness, associated with the breathing treatment she had received in the morning, which resolved after the treatment ended. She now denies any chest pain, shortness of breath, diaphoresis, or palpitations. She does report "squeezing" in her epigastrum. She was able to eat her dinner yesterday without difficulty, as well as breakfast this morning. She denies any abdominal pain, nausea, vomiting, diarrhea, constipation, fever, or chills. Objective - Vital Signs/Intake and Output Vital Signs (last 24 hours): Temp Pulse Resp BP Pulse Ox 97.4 F L 86 20 145/74 97 03/02/17 07:30 03/02/17 07:30 03/02/17 07:30 03/02/17 07:30 03/02/17 07:30 Intake and Output: 03/02/17 03/02/17 06:59 18:59 Intake Total 1680 Balance 1680 - Medications Medications: Current Medications Acetaminophen (Tylenol 325mg Tab) 650 mg PO Q4 PRN PRN Reason: Pain, Mild (1-3) Al Hydrox/Mg Hydrox/Simethicone (Maalox Plus 30 Ml) 30 ml PO BID PRN PRN Reason: Indigestion / Heartburn Atenolol (Tenormin) 12.5 mg PO DAILY [facility] Famotidine (Pepcid) 40 mg PO HS [facility] Last Admin: 03/01/17 21:15 Dose: 40 mg Heparin Sodium (Porcine) (Heparin) 5,000 units SC Q8 [facility] PRN Reason: Protocol Last Admin: 03/01/17 05:13 Dose: 5,000 units Hydralazine HCl (Apresoline) 10 mg IVP Q6 PRN PRN Reason: Systolic Blood Pressure Lactated Ringer's (Lactated Ringer's) 1,000 mls @ 100 mls/hr IV .Q10H [facility] Last Admin: 03/02/17 05:49 Dose: 100 mls/hr Ceftriaxone Sodium (Rocephin 2 Gm Ivpb) 2 gm in 100 mls @ 100 mls/hr IVPB DAILY [facility] PRN Reason: Protocol Last Admin: 03/02/17 11:44 Dose: 100 mls/hr Metronidazole (Flagyl) 500 mg in 100 mls @ 100 mls/hr IVPB Q8 [facility] PRN Reason: Protocol Last Admin: 03/02/17 10:43 Dose: 100 mls/hr Levothyroxine Sodium (Synthroid) 125 mcg PO ACB [facility] Last Admin: 03/02/17 08:33 Dose: 125 mcg Losartan Potassium (Cozaar) 50 mg PO BID [facility] Last Admin: 03/02/17 08:33 Dose: 50 mg Morphine Sulfate (Morphine) 2 mg IVP Q4H PRN PRN Reason: Pain, moderate (4-7) - Labs Labs: 03/02/17 06:00 03/02/17 06:00 PT 13.0 SECONDS (9.4-12.5) H 03/01/17 11:35 INR 1.13 (0.93-1.08) H 03/01/17 11:35 APTT 32.9 Seconds (25.1-36.5) 03/01/17 11:35 - Constitutional Appears: Non-toxic, No Acute Distress - Head Exam Head Exam: ATRAUMATIC, NORMOCEPHALIC - Eye Exam Eye Exam: EOMI, Normal appearance, PERRL. absent: Scleral icterus - ENT Exam ENT Exam: Mucous Membranes Moist - Neck Exam Neck Exam: Normal Inspection - Respiratory Exam Respiratory Exam: Clear to Ausculation Bilateral, NORMAL BREATHING PATTERN. absent: Rales, Rhonchi, Wheezes, Respiratory Distress, Stridor - Cardiovascular Exam Cardiovascular Exam: RRR, +S1, +S2. absent: Tachycardia, Murmur - GI/Abdominal Exam GI & Abdominal Exam: Soft, Tenderness (mild, RUQ), Normal Bowel Sounds Additional comments: Grossly obese - Extremities Exam Extremities Exam: absent: Calf Tenderness, Pedal Edema - Neurological Exam Neurological Exam: Alert, Awake, Oriented x3 - Psychiatric Exam Psychiatric exam: Anxious, Normal Affect - Skin Skin Exam: Dry, Intact, Normal Color Assessment and Plan - Assessment and Plan (Free Text) Assessment: Patient is a 61 year old male with past medical history of hypertension and hypothyroidism who presents to the emergency department for evaluation and treatment of abdominal pain. Noted to have acute on chronic cholecystitis Acute on chronic cholecystitis - Abdominal pain improving with IV abx, rest, and fluids; still with some abdominal tenderness - Patient will go for cholecystectomy today or tomorrow pending cardiac clearance - LR NS @100 - pain control- tylenol mild pain, morphine 2 mg q4h moderate pain, morphine 4mg q4h prn severe pain - Continue IV rocephin and flagyl - Cardio clearance pending; repeat EKG unchanged, trops negative; echo done, pending read - general surgery consulted- appreciate recommendations Hx of Htn - c/w home losartan - hydralazine 5mg IV q6 prn SBP > 180, holding parameters- do not administer if HR is > 100 bpm Hx of Hypothyrodism - c/w home levothyroxine - TSH wnl Hx of Asthma - Patient reportedly does not take anything at home for asthma; had chest discomfort with breathing treatment this morning - Will hold breathing treatments; consider adding PRN duonebs if necessary b/l LE pain - Yesterday, patient was complaining of bilateral knee pain and left calf pain and tenderness - b/l LE duplex negative for DVT - Knee pain likely 2/2 chronic OA, considering history and physical exam findings; no instability, no effusion, crepitus noted; pain is progressive and chronic Prophylaxis - DVT ppx- subq heparin - GI ppx- famotidine Patient case discussed with and plan approved by attending physician. <Jere Myrick - Last Filed: 03/02/17 16:09> Objective - Vital Signs/Intake and Output Vital Signs (last 24 hours): Temp Pulse Resp BP Pulse Ox 97.4 F L 86 20 145/74 97 03/02/17 07:30 03/02/17 07:30 03/02/17 07:30 03/02/17 07:30 03/02/17 07:30 Intake and Output: 03/02/17 03/02/17 06:59 18:59 Intake Total 1680 360 Balance 1680 360 - Medications Medications: Current Medications Acetaminophen (Tylenol 325mg Tab) 650 mg PO Q4 PRN PRN Reason: Pain, Mild (1-3) Al Hydrox/Mg Hydrox/Simethicone (Maalox Plus 30 Ml) 30 ml PO BID PRN PRN Reason: Indigestion / Heartburn Atenolol (Tenormin) 12.5 mg PO DAILY [facility] Last Admin: 03/02/17 13:04 Dose: 12.5 mg Famotidine (Pepcid) 40 mg PO HS [facility] Last Admin: 03/01/17 21:15 Dose: 40 mg Heparin Sodium (Porcine) (Heparin) 5,000 units SC Q8 [facility] PRN Reason: Protocol Last Admin: 03/01/17 05:13 Dose: 5,000 units Hydralazine HCl (Apresoline) 10 mg IVP Q6 PRN PRN Reason: Systolic Blood Pressure Lactated Ringer's (Lactated Ringer's) 1,000 mls @ 100 mls/hr IV .Q10H [facility] Last Admin: 03/02/17 05:49 Dose: 100 mls/hr Ceftriaxone Sodium (Rocephin 2 Gm Ivpb) 2 gm in 100 mls @ 100 mls/hr IVPB DAILY [facility] PRN Reason: Protocol Last Admin: 03/02/17 11:44 Dose: 100 mls/hr Metronidazole (Flagyl) 500 mg in 100 mls @ 100 mls/hr IVPB Q8 [facility] PRN Reason: Protocol Last Admin: 03/02/17 10:43 Dose: 100 mls/hr Levothyroxine Sodium (Synthroid) 125 mcg PO ACB [facility] Last Admin: 03/02/17 08:33 Dose: 125 mcg Losartan Potassium (Cozaar) 50 mg PO BID [facility] Last Admin: 03/02/17 08:33 Dose: 50 mg Morphine Sulfate (Morphine) 2 mg IVP Q4H PRN PRN Reason: Pain, severe (8-10) - Labs Labs: 03/02/17 06:00 03/02/17 06:00 PT 13.0 SECONDS (9.4-12.5) H 03/01/17 11:35 INR 1.13 (0.93-1.08) H 03/01/17 11:35 APTT 32.9 Seconds (25.1-36.5) 03/01/17 11:35 Attending/Attestation - Attestation I have personally seen and examined this patient.: Yes I have fully participated in the care of the patient.: Yes I have reviewed all pertinent clinical information, including history, physical exam and plan: Yes Notes (Text): 03/02/17 16:04 Attending note; Patient seen and examined with resident. Patient's son and [id number] by the bedside. Patient is a 61-year-old female with a past medical history of hypertension, hypothyroidism is admitted with recurrent abdominal pain. Abdominal ultrasound and CAT scan shows acute on chronic cholecystitis. Keep patient nothing by mouth. IV fluids. Continue IV Rocephin and Flagyl. Abnormal EKG; cardiac enzymes negative. Echocardiogram normal. Cardiology cleared the patient for cholecystectomy. Plan for laparoscopic cholecystectomy this evening.
[2017-03-02] MEDS ORDERED: Morphine 2 mg/ml ISec IVP PRN (12:05)
--- NOTE | 2017-03-02 14:50 | CON ---
DATE: REASON FOR CONSULTATION: Preoperative evaluation. HISTORY OF PRESENT ILLNESS: The patient is a 61-year-old female who has history of hypertension and history of bronchial asthma, who was admitted with the diagnosis of cholelithiasis and cholecystitis and is considered for cholecystectomy. The patient denies any chest pain, but does report dyspnea on exertion. The patient is unaware of any prior cardiac history. SOCIAL HISTORY: Nonsmoker and nondrinker. REVIEW OF SYSTEMS: The patient had diarrhea this morning twice. MEDICATIONS: Hydralazine 10 mg intravenously q.6 hours p.r.n., Cozaar 50 mg twice a day, Flagyl 500 mg intravenous q.8 hours, subcutaneous heparin 5000 units q.8 hours, lactated Ringer's at 10 mL an hour, morphine 4 mg intravenously q.4 hours p.r.n., Rocephin 2 g intravenously daily, and Synthroid 125 mcg daily. PHYSICAL EXAMINATION: GENERAL: The patient is a middle-aged female who does not appear to be in any distress. VITAL SIGNS: Blood pressure 145/74, heart rate 86, temperature 97.4, and respirations 20. HEENT: Normocephalic. NECK: No JVD. CHEST: Clear. HEART: S1 and S2 regular. EXTREMITIES: No edema. LABORATORY DATA: Hemoglobin and hematocrit are 11.6 and 38.8, white count and platelet count are within normal limits. Today's SMA-7 is within normal limits except for BUN and creatinine of 6 and 0.5 respectively. Two sets of troponin are negative. TSH level is within normal limits. INR is 1.13 and PTT is 32.9. Today's EKG revealed normal sinus rhythm, possible old lateral infarct. Admitting EKG was suggestive of lateral ischemic Q-wave changes. Echocardiographic study performed today revealed borderline LVH with normal systolic function, reduced compliance and mild pulmonary hypertension. ASSESSMENT: 1. Acute calculus cholecystitis. 2. Hypertension. 3. Abnormal EKG, myocardial infarction was ruled out. RECOMMENDATIONS: Continue IV Rocephin, continue Synthroid and Cozaar. Start atenolol 12.5 mg once a day. The patient can undergo cholecystectomy with cardiac risk, postoperative telemetry monitoring. Stephen Ramirez MD [facility] # [id number]
[2017-03-02] MEDS ORDERED: Iohexol 240 (50 ml) ONE (14:57)
[2017-03-02] MEDS ORDERED: Bupivacaine 0.5% Inj(30mL) ONE (14:57)
--- NOTE | 2017-03-02 18:04 | CARD ---
APPROVED REPORT EKG Measurement Heart [id number] <Conclusion> Normal sinus rhythm Possible Lateral infarct, age undetermined Inferior infarct, age undetermined Abnormal ECG
[2017-03-03 05:46] LABS: URINE BILIRUBIN NEGATIVE (NEGATIVE); URINE BLOOD NEGATIVE (NEGATIVE); URINE GLUCOSE (UA) NEGATIVE (NEGATIVE); URINE LEUKOCYTE ESTERASE TRACE Leu/uL (NEGATIVE); URINE NITRATE NEGATIVE (NEGATIVE); URINE PROTEIN NEGATIVE mg/dL (<30 mg/dL); URINE UROBILINOGEN 0.2 E.U./dL (<1 E.U./dL)
[2017-03-03 05:53] LABS: URINE APPEARANCE CLEAR (CLEAR); URINE COLOR YELLOW (YELLOW)
[2017-03-03] MEDS: metroNIDAZOLE IV 500 mg/100 ml 500 MG/100 ML BAG IVPB SCH ×3 (05:54→21:05)
[2017-03-03 05:58] LABS: URINE BACTERIA RARE (NEG); URINE RBC 0 - 2 /hpf (0-2)
[2017-03-03 07:14] LABS: BASO # 0.01 K/mm3 (0.0-2.0); BASO % 0.1 % (0.0-3.0); EOS # 0.1 (0.0-0.7); EOS % 1.3 % (1.5-5.0); GRAN # 4.62 (1.4-6.5); GRAN % 59.9 % (50.0-68.0); HEMOGLOBIN 11.5 g/dL (12.0-16.0); LYMPH # 2.2 (1.2-3.4); LYMPH % 29.1 % (22.0-35.0); MEAN CELL VOLUME 90.3 fl (80.0-105.0); MEAN CORPUSCULAR HEMOGLOBIN 26.6 pg (25.0-35.0); MEAN CORPUSCULAR HGB CONC 29.5 g/dl (31.0-37.0); MONO # 0.7 (0.1-0.6); MONO % 9.6 % (1.0-6.0); RBC 4.32 10^6/uL (3.5-6.1); WHITE BLOOD COUNT 7.7 10^3/ul (4.5-11.0)
[2017-03-03 08:04] LABS: ALB/GLOB RATIO 0.9 (1.1-1.8); ALBUMIN 3.2 g/dL (3.0-4.8); ALT/SGPT 27 U/L (7-56); AST/SGOT 28 U/L (14-36); BLOOD UREA NITROGEN 6 mg/dL (7-21); GFR AFRICAN-AMERICAN > 60; GFR NON-AFRICAN AMERICAN > 60
[2017-03-03] MEDS: Levothyroxine 125 MCG TAB PO SCH (08:31)
[2017-03-03] MEDS: cefTRIAXone 2 GM IN NS 2 GM/100 ML BAG IVPB SCH (09:17)
[2017-03-03] MEDS ORDERED: Bupivacaine 0.5% Inj(30mL) ONE (11:36)
[2017-03-03] MEDS ORDERED: Iohexol 240 (50 ml) ONE (11:44)
[2017-03-03] MEDS ORDERED: Propofol 10 mg/ml Inj (20 ML) ONE (13:12)
[2017-03-03] MEDS ORDERED: Lidocaine 1% Inj (20ml) ONE (13:12)
[2017-03-03] MEDS ORDERED: Rocuronium 10 mg/ml (5 ml) ONE (13:19)
[2017-03-03] MEDS ORDERED: MetroNIDAZOLE 500 mg/100 ml IVPB ONE (13:20)
[2017-03-03] MEDS ORDERED: metroNIDAZOLE IV 500 mg/100 ml 500 MG/100 ML BAG ONE (13:30)
[2017-03-03] MEDS ORDERED: Atropine 0.4 mg/ml Inj (1 mL) ONE (13:50)
[2017-03-03] MEDS ORDERED: ePHEDrine 50 mg/ml Inj ONE (13:52)
[2017-03-03] MEDS ORDERED: Lactated Ringer's 1,000 ML IV SCH (15:30)
[2017-03-03] MEDS ORDERED: HYDROmorphone 0.5 mg/0.5 ml ISec IVP PRN ×2 (15:30→16:04)
[2017-03-03] MEDS ORDERED: Neostigmine Methylsulfate 3mg/3ml Syringe IV ONE (15:46)
--- NOTE | 2017-03-03 16:01 | PCM.SURG1 ---
Surgeon's Initial Post Op Note - Surgeon's Notes Surgeon: Dr. Cunha [place] [place]: Dr. Roberts PGY-3, Dr. Hopkins PGY-1, Vaishali Lopez OMS-III Type of Anesthesia: General Endo, Local Anesthesia Administered By: Dr. Gant Pre-Operative Diagnosis: Biliary colic Operative Findings: Acute on chronic cholecystitis, omentum adhered to liver Post-Operative Diagnosis: Acute on chronic cholecystitis Operation Performed: Laparoscopic cholecystectomy, lysis of adhesions Specimen/Specimens Removed: gallbladder Estimated Blood Loss: EBL {In ML}: 75 Blood Products Given: N/A Drains Used: No Drains Post-Op Condition: Fair Date of Surgery/Procedure: 03/03/17 Time of Surgery/Procedure: 16:01
[2017-03-03] MEDS ORDERED: HYDROmorphone 0.5 mg/0.5 ml ISec ONE ×2 (16:18→18:14)
--- NOTE | 2017-03-03 16:40 | CP.PCM.PN ---
<Lisa Stanley - Last Filed: 03/03/17 16:37> Subjective - Date & Time of Evaluation Date of Evaluation: 03/03/17 Time of Evaluation: 07:30 - Subjective Subjective: Lisa Stanley DO PGY1 - Internal Medicine Progress Note Patient seen and examined at bedside. No acute events reported overnight. Patient did not end up going for surgery yesterday. Is scheduled for OR this morning at 1100. Currently NPO. Patient denies any fever, chills, chest pain, SOB, abdominal pain, nausea, vomiting, diarrhea, constipation. Son and daughter- in-law at bedside. Objective - Vital Signs/Intake and Output Vital Signs (last 24 hours): Temp Pulse Resp BP Pulse Ox 98.2 F 97 H 13 146/96 H 97 03/03/17 16:28 03/03/17 16:28 03/03/17 16:28 03/03/17 16:28 03/03/17 16:28 Intake and Output: 03/03/17 03/03/17 06:59 18:59 Intake Total 1560 Balance 1560 - Medications Medications: Current Medications Acetaminophen (Tylenol 325mg Tab) 650 mg PO Q4 PRN PRN Reason: Pain, Mild (1-3) Last Admin: 03/02/17 20:35 Dose: 650 mg Al Hydrox/Mg Hydrox/Simethicone (Maalox Plus 30 Ml) 30 ml PO BID PRN PRN Reason: Indigestion / Heartburn Atenolol (Tenormin) 12.5 mg PO DAILY [facility] Last Admin: 03/03/17 09:18 Dose: 12.5 mg Famotidine (Pepcid) 20 mg IVP DAILY [facility] Last Admin: 03/03/17 09:16 Dose: 20 mg Heparin Sodium (Porcine) (Heparin) 5,000 units SC Q8 [facility] PRN Reason: Protocol Last Admin: 03/01/17 05:13 Dose: 5,000 units Hydralazine HCl (Apresoline) 10 mg IVP Q6 PRN PRN Reason: Systolic Blood Pressure Hydromorphone HCl (Dilaudid) 0.5 mg IVP Q15M PRN PRN Reason: Pain, moderate (4-7) Stop: 03/03/17 17:31 Last Admin: 03/03/17 16:18 Dose: 0.5 mg Hydromorphone HCl (Dilaudid) 0.5 mg IVP Q4H PRN PRN Reason: Pain, severe (8-10) Lactated Ringer's (Lactated Ringer's) 1,000 mls @ 100 mls/hr IV .Q10H [facility] Last Admin: 03/02/17 23:59 Dose: 100 mls/hr Ceftriaxone Sodium (Rocephin 2 Gm Ivpb) 2 gm in 100 mls @ 100 mls/hr IVPB DAILY [facility] PRN Reason: Protocol Stop: 03/05/17 10:59 Last Admin: 03/03/17 09:17 Dose: 100 mls/hr Metronidazole (Flagyl) 500 mg in 100 mls @ 100 mls/hr IVPB Q8 [facility] PRN Reason: Protocol Last Admin: 03/03/17 05:54 Dose: 100 mls/hr Lactated Ringer's (Lactated Ringer's) 1,000 mls @ 75 mls/hr IV .[id number] [facility] Stop: 03/03/17 17:31 Levothyroxine Sodium (Synthroid) 125 mcg PO ACB [facility] Last Admin: 03/03/17 08:31 Dose: Not Given Losartan Potassium (Cozaar) 50 mg PO BID [facility] Last Admin: 03/03/17 09:25 Dose: 50 mg Metoclopramide HCl (Reglan) 10 mg IV ONCE PRN PRN Reason: Nausea/Vomiting Morphine Sulfate (Morphine) 2 mg IVP Q4H PRN PRN Reason: Pain, severe (8-10) Ondansetron HCl (Zofran Inj) 4 mg IVP Q4H PRN PRN Reason: Nausea/Vomiting - Labs Labs: 03/03/17 06:00 03/03/17 06:00 PT 13.0 SECONDS (9.4-12.5) H 03/01/17 11:35 INR 1.13 (0.93-1.08) H 03/01/17 11:35 APTT 32.9 Seconds (25.1-36.5) 03/01/17 11:35 - Constitutional Appears: Non-toxic, No Acute Distress - Head Exam Head Exam: ATRAUMATIC, NORMOCEPHALIC - Eye Exam Eye Exam: EOMI, Normal appearance, PERRL - ENT Exam ENT Exam: Mucous Membranes Moist - Neck Exam Neck Exam: Normal Inspection - Respiratory Exam Respiratory Exam: Clear to Ausculation Bilateral, NORMAL BREATHING PATTERN - Cardiovascular Exam Cardiovascular Exam: REGULAR RHYTHM, +S1, +S2. absent: Tachycardia - GI/Abdominal Exam GI & Abdominal Exam: Soft, Tenderness (mild, RUQ), Normal Bowel Sounds - Extremities Exam Extremities Exam: absent: Calf Tenderness, Pedal Edema - Neurological Exam Neurological Exam: Alert, Awake, Oriented x3 - Psychiatric Exam Psychiatric exam: Normal Affect, Normal Mood - Skin Skin Exam: Dry, Intact, Normal Color Assessment and Plan - Assessment and Plan (Free Text) Assessment: Patient is a 61 year old male with past medical history of hypertension and hypothyroidism who presents to the emergency department for evaluation and treatment of abdominal pain. Noted to have acute on chronic cholecystitis Acute on chronic cholecystitis - Abdominal pain improving with IV abx, rest, and fluids; still with some abdominal tenderness - Patient will go for cholecystectomy today; currently NPO - LR @100cc/hr - pain control- tylenol mild pain, morphine 2 mg q4h severe pain - Continue IV rocephin and flagyl - Per Cardio patient can go for cholecystectomy with moderate cardiac risk - general surgery consulted- appreciate recommendations Hx of Htn - c/w home losartan - hydralazine 5mg IV q6 prn SBP > 180, holding parameters- do not administer if HR is > 100 bpm Hx of Hypothyrodism - c/w home levothyroxine - TSH wnl Hx of Asthma - Patient reportedly does not take anything at home for asthma; no wheezing on exam, no shortness of breath Prophylaxis - DVT ppx- subq heparin - GI ppx- famotidine Patient case discussed with and plan approved by attending Dr. yMrick. <Jere Myrick - Last Filed: 03/04/17 13:37> Objective - Vital Signs/Intake and Output Vital Signs (last 24 hours): Temp Pulse Resp BP Pulse Ox 98 F 65 19 104/60 95 03/04/17 12:00 03/04/17 12:00 03/04/17 12:00 03/04/17 12:00 03/04/17 06:00 Intake and Output: 03/04/17 03/04/17 06:59 18:59 Intake Total 350 Output Total 200 Balance 150 - Medications Medications: Current Medications Acetaminophen (Tylenol 325mg Tab) 650 mg PO Q4 PRN PRN Reason: Pain, Mild (1-3) Last Admin: 03/02/17 20:35 Dose: 650 mg Al Hydrox/Mg Hydrox/Simethicone (Maalox Plus 30 Ml) 30 ml PO BID PRN PRN Reason: Indigestion / Heartburn Atenolol (Tenormin) 12.5 mg PO DAILY [facility] Last Admin: 03/03/17 09:18 Dose: 12.5 mg Benzocaine/Menthol (Cepacol Sore Throat) 1 [address]ill MT Q2H PRN PRN Reason: Sore Throat Famotidine (Pepcid) 20 mg IVP DAILY [facility] Last Admin: 03/04/17 09:59 Dose: 20 mg Heparin Sodium (Porcine) (Heparin) 5,000 units SC Q8 [facility] PRN Reason: Protocol Last Admin: 03/01/17 05:13 Dose: 5,000 units Hydralazine HCl (Apresoline) 10 mg IVP Q6 PRN PRN Reason: Systolic Blood Pressure Ceftriaxone Sodium (Rocephin 2 Gm Ivpb) 2 gm in 100 mls @ 100 mls/hr IVPB DAILY [facility] PRN Reason: Protocol Stop: 03/05/17 10:59 Last Admin: 03/03/17 09:17 Dose: 100 mls/hr Metronidazole (Flagyl) 500 mg in 100 mls @ 100 mls/hr IVPB Q8 [facility] PRN Reason: Protocol Last Admin: 03/04/17 05:24 Dose: 100 mls/hr Levothyroxine Sodium (Synthroid) 125 mcg PO ACB [facility] Last Admin: 03/04/17 08:04 Dose: 125 mcg Losartan Potassium (Cozaar) 50 mg PO BID [facility] Last Admin: 03/04/17 09:59 Dose: 50 mg Metoclopramide HCl (Reglan) 10 mg IV ONCE PRN PRN Reason: Nausea/Vomiting Morphine Sulfate (Morphine) 2 mg IVP Q4H PRN PRN Reason: Pain, severe (8-10) Ondansetron HCl (Zofran Inj) 4 mg IVP Q4H PRN PRN Reason: Nausea/Vomiting Last Admin: 03/03/17 18:50 Dose: 4 mg Tramadol HCl (Ultram) 50 mg PO TID PRN PRN Reason: Pain, moderate (4-7) Last Admin: 03/04/17 12:44 Dose: 50 mg - Labs Labs: 03/04/17 09:00 03/04/17 09:00 PT 13.0 SECONDS (9.4-12.5) H 03/01/17 11:35 INR 1.13 (0.93-1.08) H 03/01/17 11:35 APTT 32.9 Seconds (25.1-36.5) 03/01/17 11:35 Attending/Attestation - Attestation I have personally seen and examined this patient.: Yes I have fully participated in the care of the patient.: Yes I have reviewed all pertinent clinical information, including history, physical exam and plan: Yes Notes (Text): 03/04/17 13:37 Attending note; Patient seen and examined with resident. Patient's son and [id number] by the bedside. Patient is a 61-year-old female with a past medical history of hypertension, hypothyroidism is admitted with recurrent abdominal pain. Abdominal ultrasound and CAT scan shows acute on chronic cholecystitis. Keep patient nothing by mouth. IV fluids. Continue IV Rocephin and Flagyl. Abnormal EKG; cardiac enzymes negative. Echocardiogram normal. Cardiology cleared the patient for cholecystectomy. Plan for laparoscopic cholecystectomy. 03/04/17 13:37
[2017-03-04] MEDS: metroNIDAZOLE IV 500 mg/100 ml 500 MG/100 ML BAG IVPB SCH ×3 (05:24→21:17)
[2017-03-04] MEDS: Levothyroxine 125 MCG TAB PO SCH (08:04)
--- NOTE | 2017-03-04 08:17 | CP.PCM.PN ---
<SandeepRenaldo doe - Last Filed: 03/04/17 08:29> Subjective - Date & Time of Evaluation Date of Evaluation: 03/04/17 Time of Evaluation: 07:15 - Subjective Subjective: Surgery Progress note. Dr. Cunha Pt seen and examined at bedside. No acute events overnight. No N/V/D. C/o Right Upper quadrant tenderness. No new complaints. Objective - Vital Signs/Intake and Output Vital Signs (last 24 hours): Temp Pulse Resp BP Pulse Ox 98.6 F 87 19 136/70 95 03/04/17 06:00 03/04/17 06:00 03/04/17 06:00 03/04/17 06:00 03/04/17 06:00 Intake and Output: 03/04/17 03/04/17 06:59 18:59 Intake Total 350 Output Total 200 Balance 150 - Medications Medications: Current Medications Acetaminophen (Tylenol 325mg Tab) 650 mg PO Q4 PRN PRN Reason: Pain, Mild (1-3) Last Admin: 03/02/17 20:35 Dose: 650 mg Al Hydrox/Mg Hydrox/Simethicone (Maalox Plus 30 Ml) 30 ml PO BID PRN PRN Reason: Indigestion / Heartburn Atenolol (Tenormin) 12.5 mg PO DAILY [facility] Last Admin: 03/03/17 09:18 Dose: 12.5 mg Famotidine (Pepcid) 20 mg IVP DAILY [facility] Last Admin: 03/03/17 09:16 Dose: 20 mg Heparin Sodium (Porcine) (Heparin) 5,000 units SC Q8 [facility] PRN Reason: Protocol Last Admin: 03/01/17 05:13 Dose: 5,000 units Hydralazine HCl (Apresoline) 10 mg IVP Q6 PRN PRN Reason: Systolic Blood Pressure Hydromorphone HCl (Dilaudid) 0.5 mg IVP Q4H PRN PRN Reason: Pain, severe (8-10) Last Admin: 03/03/17 18:15 Dose: 0.5 mg Ceftriaxone Sodium (Rocephin 2 Gm Ivpb) 2 gm in 100 mls @ 100 mls/hr IVPB DAILY [facility] PRN Reason: Protocol Stop: 03/05/17 10:59 Last Admin: 01/26/18 09:17 Dose: 100 mls/hr Metronidazole (Flagyl) 500 mg in 100 mls @ 100 mls/hr IVPB Q8 [facility] PRN Reason: Protocol Last Admin: 03/04/17 05:24 Dose: 100 mls/hr Levothyroxine Sodium (Synthroid) 125 mcg PO ACB [facility] Last Admin: 03/04/17 08:04 Dose: 125 mcg Losartan Potassium (Cozaar) 50 mg PO BID [facility] Last Admin: 03/03/17 18:40 Dose: Not Given Metoclopramide HCl (Reglan) 10 mg IV ONCE PRN PRN Reason: Nausea/Vomiting Morphine Sulfate (Morphine) 2 mg IVP Q4H PRN PRN Reason: Pain, severe (8-10) Ondansetron HCl (Zofran Inj) 4 mg IVP Q4H PRN PRN Reason: Nausea/Vomiting Last Admin: 03/03/17 18:50 Dose: 4 mg - Labs Labs: 03/03/17 06:00 03/03/17 06:00 PT 13.0 SECONDS (9.4-12.5) H 03/01/17 11:35 INR 1.13 (0.93-1.08) H 03/01/17 11:35 APTT 32.9 Seconds (25.1-36.5) 03/01/17 11:35 - Constitutional Appears: Non-toxic, No Acute Distress - Head Exam Head Exam: ATRAUMATIC, NORMAL INSPECTION, NORMOCEPHALIC - Eye Exam Eye Exam: EOMI - ENT Exam ENT Exam: Mucous Membranes Moist - Respiratory Exam Respiratory Exam: NORMAL BREATHING PATTERN. absent: Accessory Muscle Use, Respiratory Distress - GI/Abdominal Exam GI & Abdominal Exam: Soft. absent: Distended, Rebound Additional comments: RUQ tenderness. Incisions intact, skin edges well approximated. Soft, no rebound. No guarding. - Extremities Exam Extremities Exam: Normal Inspection - Neurological Exam Neurological Exam: Alert, Awake, Oriented x3 - Psychiatric Exam Psychiatric exam: Normal Affect, Normal Mood Assessment and Plan - Assessment and Plan (Free Text) Assessment: 61yo F s/p Lap Lida on 03/03/17. POD1 Plan: - May advance diet as tolerated. - May resume DVT ppx at 12 today - Continue to monitor LFTs - pain management - Encourage Ambulation, OOBTC, IS use Further recs as per Dr. Guerline Hopkins PGY1 surgery pager: [phone] <Jere Myrick - Last Filed: 03/04/17 12:02> Objective - Vital Signs/Intake and Output Vital Signs (last 24 hours): Temp Pulse Resp BP Pulse Ox 98.6 F 87 19 136/70 95 03/04/17 06:00 03/04/17 09:59 03/04/17 06:00 03/04/17 09:59 03/04/17 06:00 Intake and Output: 03/04/17 03/04/17 06:59 18:59 Intake Total 350 Output Total 200 Balance 150 - Medications Medications: Current Medications Acetaminophen (Tylenol 325mg Tab) 650 mg PO Q4 PRN PRN Reason: Pain, Mild (1-3) Last Admin: 03/02/17 20:35 Dose: 650 mg Al Hydrox/Mg Hydrox/Simethicone (Maalox Plus 30 Ml) 30 ml PO BID PRN PRN Reason: Indigestion / Heartburn Atenolol (Tenormin) 12.5 mg PO DAILY [facility] Last Admin: 03/03/17 09:18 Dose: 12.5 mg Benzocaine/Menthol (Cepacol Sore Throat) 1 phill MT Q2H PRN PRN Reason: Sore Throat Famotidine (Pepcid) 20 mg IVP DAILY [facility] Last Admin: 03/04/17 09:59 Dose: 20 mg Heparin Sodium (Porcine) (Heparin) 5,000 units SC Q8 [facility] PRN Reason: Protocol Last Admin: 03/01/17 05:13 Dose: 5,000 units Hydralazine HCl (Apresoline) 10 mg IVP Q6 PRN PRN Reason: Systolic Blood Pressure Ceftriaxone Sodium (Rocephin 2 Gm Ivpb) 2 gm in 100 mls @ 100 mls/hr IVPB DAILY [facility] PRN Reason: Protocol Stop: 03/05/17 10:59 Last Admin: 03/03/17 09:17 Dose: 100 mls/hr Metronidazole (Flagyl) 500 mg in 100 mls @ 100 mls/hr IVPB Q8 [facility] PRN Reason: Protocol Last Admin: 03/04/17 05:24 Dose: 100 mls/hr Levothyroxine Sodium (Synthroid) 125 mcg PO ACB [facility] Last Admin: 03/04/17 08:04 Dose: 125 mcg Losartan Potassium (Cozaar) 50 mg PO BID [facility] Last Admin: 03/04/17 09:59 Dose: 50 mg Metoclopramide HCl (Reglan) 10 mg IV ONCE PRN PRN Reason: Nausea/Vomiting Morphine Sulfate (Morphine) 2 mg IVP Q4H PRN PRN Reason: Pain, severe (8-10) Ondansetron HCl (Zofran Inj) 4 mg IVP Q4H PRN PRN Reason: Nausea/Vomiting Last Admin: 03/03/17 18:50 Dose: 4 mg - Labs Labs: 03/04/17 09:00 03/04/17 09:00 PT 13.0 SECONDS (9.4-12.5) H 03/01/17 11:35 INR 1.13 (0.93-1.08) H 03/01/17 11:35 APTT 32.9 Seconds (25.1-36.5) 03/01/17 11:35 Attending/Attestation - Attestation I have personally seen and examined this patient.: Yes I have fully participated in the care of the patient.: Yes I have reviewed all pertinent clinical information, including history, physical exam and plan: Yes Notes (Text): 03/04/17 12:01 Attending note; Patient seen and examined with resident. Patient's son and [id number] by the bedside. Patient is a 61-year-old female with a past medical history of hypertension, hypothyroidism is admitted with recurrent abdominal pain. Abdominal ultrasound and CAT scan shows acute on chronic cholecystitis. for lap cholecystectomy today. Continue IV Rocephin and Flagyl. monitor closely.
[2017-03-04] MEDS ORDERED: Benzocaine/Menthol (Cepacol) Lozenge MT PRN (09:17)
[2017-03-04 09:20] LABS: BASO # 0.01 K/mm3 (0.0-2.0); BASO % 0.1 % (0.0-3.0); EOS % 0.1 % (1.5-5.0); GRAN # 11.3 (1.4-6.5); GRAN % 82.4 % (50.0-68.0); HEMOGLOBIN 11.8 g/dL (12.0-16.0); LYMPH # 1.5 (1.2-3.4); LYMPH % 11.1 % (22.0-35.0); MEAN CELL VOLUME 89.5 fl (80.0-105.0); MEAN CORPUSCULAR HGB CONC 30.2 g/dl (31.0-37.0); MONO # 0.9 (0.1-0.6); MONO % 6.3 % (1.0-6.0); RBC 4.37 10^6/uL (3.5-6.1); RED CELL DISTRIBUTION WIDTH 13.9 % (11.5-14.5); WHITE BLOOD COUNT 13.7 10^3/ul (4.5-11.0)
[2017-03-04 09:34] LABS: ALB/GLOB RATIO 0.9 (1.1-1.8); ALBUMIN 3.3 g/dL (3.0-4.8); ALT/SGPT 32 U/L (7-56); AST/SGOT 34 U/L (14-36); BLOOD UREA NITROGEN 8 mg/dL (7-21); CALCIUM 9.1 mg/dL (8.4-10.5); GFR AFRICAN-AMERICAN > 60; GFR NON-AFRICAN AMERICAN > 60
--- NOTE | 2017-03-04 10:04 | CP.PCM.PN ---
<VirginieKamaljit - Last Filed: 03/04/17 17:31> Subjective - Date & Time of Evaluation Date of Evaluation: 03/04/17 Time of Evaluation: 10:04 - Subjective Subjective: Kamaljit Camachoguis PGY1 IM Progress Note Patient was seen and examined at bedside. She states that she is still in pain, and that she is not passing gas or having BM. she also feels nausea but has not vomited. Patient is educated about her condition and process of healing. She denies fevers/chills, chest pain or any urinary changes or cough/respiratory issues. Objective - Vital Signs/Intake and Output Vital Signs (last 24 hours): Temp Pulse Resp BP Pulse Ox 98.6 F 87 19 136/70 95 03/04/17 06:00 03/04/17 09:59 03/04/17 06:00 03/04/17 09:59 03/04/17 06:00 Intake and Output: 03/04/17 03/04/17 06:59 18:59 Intake Total 350 Output Total 200 Balance 150 - Medications Medications: Current Medications Acetaminophen (Tylenol 325mg Tab) 650 mg PO Q4 PRN PRN Reason: Pain, Mild (1-3) Last Admin: 03/02/17 20:35 Dose: 650 mg Al Hydrox/Mg Hydrox/Simethicone (Maalox Plus 30 Ml) 30 ml PO BID PRN PRN Reason: Indigestion / Heartburn Atenolol (Tenormin) 12.5 mg PO DAILY [facility] Last Admin: 03/03/17 09:18 Dose: 12.5 mg Benzocaine/Menthol (Cepacol Sore Throat) 1 phill MT Q2H PRN PRN Reason: Sore Throat Famotidine (Pepcid) 20 mg IVP DAILY [facility] Last Admin: 03/04/17 09:59 Dose: 20 mg Heparin Sodium (Porcine) (Heparin) 5,000 units SC Q8 [facility] PRN Reason: Protocol Last Admin: 03/01/17 05:13 Dose: 5,000 units Hydralazine HCl (Apresoline) 10 mg IVP Q6 PRN PRN Reason: Systolic Blood Pressure Ceftriaxone Sodium (Rocephin 2 Gm Ivpb) 2 gm in 100 mls @ 100 mls/hr IVPB DAILY [facility] PRN Reason: Protocol Stop: 03/05/17 10:59 Last Admin: 03/03/17 09:17 Dose: 100 mls/hr Metronidazole (Flagyl) 500 mg in 100 mls @ 100 mls/hr IVPB Q8 [facility] PRN Reason: Protocol Last Admin: 03/04/17 05:24 Dose: 100 mls/hr Levothyroxine Sodium (Synthroid) 125 mcg PO ACB [facility] Last Admin: 03/04/17 08:04 Dose: 125 mcg Losartan Potassium (Cozaar) 50 mg PO BID [facility] Last Admin: 03/04/17 09:59 Dose: 50 mg Metoclopramide HCl (Reglan) 10 mg IV ONCE PRN PRN Reason: Nausea/Vomiting Morphine Sulfate (Morphine) 2 mg IVP Q4H PRN PRN Reason: Pain, severe (8-10) Ondansetron HCl (Zofran Inj) 4 mg IVP Q4H PRN PRN Reason: Nausea/Vomiting Last Admin: 03/03/17 18:50 Dose: 4 mg - Labs Labs: 03/04/17 09:00 03/04/17 09:00 PT 13.0 SECONDS (9.4-12.5) H 03/01/17 11:35 INR 1.13 (0.93-1.08) H 03/01/17 11:35 APTT 32.9 Seconds (25.1-36.5) 03/01/17 11:35 - Additional Findings Additional findings: - Constitutional Appears: Non-toxic, No Acute Distress - Head Exam Head Exam: ATRAUMATIC, NORMOCEPHALIC - Eye Exam Eye Exam: EOMI, Normal appearance, PERRL - ENT Exam ENT Exam: Mucous Membranes Moist - Neck Exam Neck Exam: Normal Inspection - Respiratory Exam Respiratory Exam: Clear to Ausculation Bilateral, NORMAL BREATHING PATTERN - Cardiovascular Exam Cardiovascular Exam: REGULAR RHYTHM, +S1, +S2. absent: Tachycardia - GI/Abdominal Exam GI & Abdominal Exam: Soft, Tenderness (mild, RUQ), Normal Bowel Sounds - Extremities Exam Extremities Exam: absent: Calf Tenderness, Pedal Edema - Neurological Exam Neurological Exam: Alert, Awake, Oriented x3 - Psychiatric Exam Psychiatric exam: Normal Affect, Normal Mood - Skin Skin Exam: Dry, Intact, Normal Color Assessment and Plan - Assessment and Plan (Free Text) Assessment: 61 year old male with past medical history of hypertension and hypothyroidism who presents to the emergency department for evaluation and treatment of abdominal pain. POD 1 s/p lap elisa Plan: 1. Acute on chronic cholecystitis - cepacol prescribd - out of bed encouraged - incentive spirometer encouraged - Abdominal pain improving with IV abx, rest, and fluids; still with some abdominal tenderness - diet advanced per surgery team - pain control - Continue IV rocephin and flagyl - cont Reglan and Maalox - general surgery consulted- appreciate recommendations 2. Hx of Htn - c/w home losartan - hydralazine 5mg IV q6 prn SBP > 180, holding parameters- do not administer if HR is > 100 bpm 3. Hx of Hypothyrodism - c/w home levothyroxine - TSH wnl 4. Prophylaxis - DVT ppx- subq heparin - GI ppx- famotidine Patient was seen, examined and discussed with attending, Dr. Elen Rachel PGY1 Pager # [phone] <Jere Myrick - Last Filed: 03/05/17 16:24> Objective - Vital Signs/Intake and Output Vital Signs (last 24 hours): Temp Pulse Resp BP Pulse Ox 99 F 101 H 22 144/81 96 03/05/17 08:17 03/05/17 09:51 03/05/17 08:17 03/05/17 09:51 03/05/17 08:17 - Medications Medications: Current Medications Acetaminophen (Tylenol 325mg Tab) 650 mg PO Q4 PRN PRN Reason: Pain, Mild (1-3) Last Admin: 03/05/17 00:19 Dose: 650 mg Al Hydrox/Mg Hydrox/Simethicone (Maalox Plus 30 Ml) 30 ml PO BID PRN PRN Reason: Indigestion / Heartburn Atenolol (Tenormin) 12.5 mg PO DAILY [facility] Last Admin: 03/03/17 09:18 Dose: 12.5 mg Benzocaine/Menthol (Cepacol Sore Throat) 1 phill MT Q2H PRN PRN Reason: Sore Throat Famotidine (Pepcid) 20 mg IVP DAILY [facility] Last Admin: 03/05/17 09:48 Dose: 20 mg Heparin Sodium (Porcine) (Heparin) 5,000 units SC Q8 [facility] PRN Reason: Protocol Last Admin: 03/05/17 16:07 Dose: 5,000 units Hydralazine HCl (Apresoline) 10 mg IVP Q6 PRN PRN Reason: Systolic Blood Pressure Metronidazole (Flagyl) 500 mg in 100 mls @ 100 mls/hr IVPB Q8 [facility] PRN Reason: Protocol Last Admin: 03/05/17 16:05 Dose: 100 mls/hr Levothyroxine Sodium (Synthroid) 125 mcg PO ACB [facility] Last Admin: 03/05/17 09:48 Dose: 125 mcg Losartan Potassium (Cozaar) 50 mg PO BID [facility] Last Admin: 03/05/17 09:51 Dose: 50 mg Metoclopramide HCl (Reglan) 10 mg IV ONCE PRN PRN Reason: Nausea/Vomiting Ondansetron HCl (Zofran Inj) 4 mg IVP Q4H PRN PRN Reason: Nausea/Vomiting Last Admin: 03/05/17 09:48 Dose: 4 mg Oxycodone/Acetaminophen (Percocet 5/325 Mg Tab) 1 tab PO Q6H PRN PRN Reason: Pain, moderate (4-7) Stop: 03/08/17 10:47 - Labs Labs: 03/05/17 07:00 03/05/17 15:30 PT 13.0 SECONDS (9.4-12.5) H 03/01/17 11:35 INR 1.13 (0.93-1.08) H 03/01/17 11:35 APTT 32.9 Seconds (25.1-36.5) 03/01/17 11:35 Attending/Attestation - Attestation I have personally seen and examined this patient.: Yes I have fully participated in the care of the patient.: Yes I have reviewed all pertinent clinical information, including history, physical exam and plan: Yes Notes (Text): 03/05/17 16:23 Attending note; Patient seen and examined with resident. Patient's son and [id number] by the bedside. Patient is a 61-year-old female with a past medical history of hypertension, hypothyroidism is admitted with recurrent abdominal pain. Abdominal ultrasound and CAT scan shows acute on chronic cholecystitis. Status post lap cholecystectomy. Complaining of mild abdominal discomfort. Started on liquid diet. Advance as tolerated. Continue IV Rocephin and Flagyl. Possible discharge home within 24-48 hours if clinically stable.
[2017-03-04] MEDS ORDERED: Morphine 5 MG/ML SYRINGE IVP PRN (10:49)
--- NOTE | 2017-03-04 12:56 | PN ---
DATE: Cardiology followup with (Dr. Ramirez). SUBJECTIVE: The patient is in bed without distress. PHYSICAL EXAMINATION: VITAL SIGNS: Blood pressure is 136/70, heart rate in the 80s. NECK: Negative JVD. LUNGS: Without rales. HEART: S1, S2. EXTREMITIES: Without edema. LABORATORY DTA: Hemoglobin is 11.8, BUN and creatinine unremarkable. IMPRESSION: 1. Status post laparoscopic cholecystectomy. 2. The patient is hemodynamically stable. PLAN: In the morning, we will return the case back to Dr. Ramirez. Dawson Reed MD
[2017-03-04] MEDS: cefTRIAXone 2 GM IN NS 2 GM/100 ML BAG IVPB SCH (14:42)
--- NOTE | 2017-03-04 16:04 | CARD ---
APPROVED REPORT EKG Measurement Heart [id number] [id number] <Conclusion> Normal sinus rhythm Inferior infarct, age undetermined Abnormal ECG
[2017-03-05] MEDS: metroNIDAZOLE IV 500 mg/100 ml 500 MG/100 ML BAG IVPB SCH ×3 (05:42→21:50)
[2017-03-05 07:58] LABS: BASO # 0.01 K/mm3 (0.0-2.0); BASO % 0.1 % (0.0-3.0); EOS % 0.1 % (1.5-5.0); GRAN # 14.14 (1.4-6.5); GRAN % 86.7 % (50.0-68.0); HEMOGLOBIN 11.4 g/dL (12.0-16.0); LYMPH # 1.2 (1.2-3.4); LYMPH % 7.2 % (22.0-35.0); MEAN CELL VOLUME 89.4 fl (80.0-105.0); MEAN CORPUSCULAR HEMOGLOBIN 26.9 pg (25.0-35.0); MEAN CORPUSCULAR HGB CONC 30.1 g/dl (31.0-37.0); MEAN PLATELET VOLUME 9.9 fl (7.0-11.0); MONO % 5.9 % (1.0-6.0); RBC 4.24 10^6/uL (3.5-6.1); RED CELL DISTRIBUTION WIDTH 14.1 % (11.5-14.5); WHITE BLOOD COUNT 16.3 10^3/ul (4.5-11.0)
[2017-03-05 08:34] LABS: ALB/GLOB RATIO 0.9 (1.1-1.8); ALBUMIN 3.2 g/dL (3.0-4.8); ALT/SGPT 25 U/L (7-56); AST/SGOT 27 U/L (14-36); BLOOD UREA NITROGEN 5 mg/dL (7-21); CALCIUM 8.7 mg/dL (8.4-10.5); GFR AFRICAN-AMERICAN > 60; GFR NON-AFRICAN AMERICAN > 60
[2017-03-05] MEDS: cefTRIAXone 2 GM IN NS 2 GM/100 ML BAG IVPB SCH (09:48)
[2017-03-05] MEDS: Levothyroxine 125 MCG TAB PO SCH (09:48)
[2017-03-05] MEDS ORDERED: Oxycodone/Acetaminophen 5/325 mg Tab PO PRN (10:46)
--- NOTE | 2017-03-05 11:39 | CP.PCM.PN ---
Subjective - Date & Time of Evaluation Date of Evaluation: 03/05/17 Time of Evaluation: 07:00 - Subjective Subjective: General Surgery- Dr. Cunha Patient seen and examined at bedside this AM. Had one episode of non-bloody non- bilious vomiting last night. Currently feels better. having continued pain in RUQ that is partially controlled with toradol. tolerating CLD at this time. incisions C/D/I w/ dermabond. Objective - Vital Signs/Intake and Output Vital Signs (last 24 hours): Temp Pulse Resp BP Pulse Ox 99 F 101 H 22 144/81 96 03/05/17 08:17 03/05/17 09:51 03/05/17 08:17 03/05/17 09:51 03/05/17 08:17 - Medications Medications: Current Medications Acetaminophen (Tylenol 325mg Tab) 650 mg PO Q4 PRN PRN Reason: Pain, Mild (1-3) Last Admin: 03/05/17 00:19 Dose: 650 mg Al Hydrox/Mg Hydrox/Simethicone (Maalox Plus 30 Ml) 30 ml PO BID PRN PRN Reason: Indigestion / Heartburn Atenolol (Tenormin) 12.5 mg PO DAILY [facility] Last Admin: 03/03/17 09:18 Dose: 12.5 mg Benzocaine/Menthol (Cepacol Sore Throat) 1 phill MT Q2H PRN PRN Reason: Sore Throat Famotidine (Pepcid) 20 mg IVP DAILY [facility] Last Admin: 03/05/17 09:48 Dose: 20 mg Heparin Sodium (Porcine) (Heparin) 5,000 units SC Q8 [facility] PRN Reason: Protocol Last Admin: 03/05/17 05:42 Dose: 5,000 units Hydralazine HCl (Apresoline) 10 mg IVP Q6 PRN PRN Reason: Systolic Blood Pressure Metronidazole (Flagyl) 500 mg in 100 mls @ 100 mls/hr IVPB Q8 [facility] PRN Reason: Protocol Last Admin: 03/05/17 05:42 Dose: 100 mls/hr Levothyroxine Sodium (Synthroid) 125 mcg PO ACB [facility] Last Admin: 03/05/17 09:48 Dose: 125 mcg Losartan Potassium (Cozaar) 50 mg PO BID [facility] Last Admin: 03/05/17 09:51 Dose: 50 mg Metoclopramide HCl (Reglan) 10 mg IV ONCE PRN PRN Reason: Nausea/Vomiting Ondansetron HCl (Zofran Inj) 4 mg IVP Q4H PRN PRN Reason: Nausea/Vomiting Last Admin: 03/05/17 09:48 Dose: 4 mg Oxycodone/Acetaminophen (Percocet 5/325 Mg Tab) 1 tab PO Q6H PRN PRN Reason: Pain, moderate (4-7) Stop: 03/08/17 10:47 - Labs Labs: 03/05/17 07:00 03/05/17 07:00 PT 13.0 SECONDS (9.4-12.5) H 03/01/17 11:35 INR 1.13 (0.93-1.08) H 03/01/17 11:35 APTT 32.9 Seconds (25.1-36.5) 03/01/17 11:35 Assessment and Plan - Assessment and Plan (Free Text) Assessment: 61F acute on chronic cholecystitis s/p Lap Lida POD#2 Plan: - serial ABD exams - if pain worsens will get HIDA scan - repeat labs this afternoon, trend T.Bili and LFT - pain control and ant-emetic PRN - continue IV Abx - Encourage Ambulation, OOBTC, IS use - Further recs as per Dr. Guerline Brandt PGY1
[2017-03-05 16:04] LABS: ALB/GLOB RATIO 0.9 (1.1-1.8); ALBUMIN 3.2 g/dL (3.0-4.8); ALT/SGPT 27 U/L (7-56); AST/SGOT 22 U/L (14-36); BLOOD UREA NITROGEN 4 mg/dL (7-21); CALCIUM 8.8 mg/dL (8.4-10.5); GFR AFRICAN-AMERICAN > 60; GFR NON-AFRICAN AMERICAN > 60
[2017-03-05 16:33] VITALS: RESP 20
[2017-03-05] MEDS: Sodium Chloride 0.9% 1,000 ML IV SCH (17:45)
[2017-03-05] MEDS: Piperacillin/Tazobact 3.375 gm 100 ML IVPB SCH ×2 (17:47→23:37)
--- NOTE | 2017-03-05 18:17 | CP.PCM.PN ---
<VirginieKamaljit - Last Filed: 03/05/17 18:09> Subjective - Date & Time of Evaluation Date of Evaluation: 03/05/17 Time of Evaluation: 11:09 - Subjective Subjective: Kamaljit Rachel PGY1 IM Progress Note Patient was seen and examined at bedside as she is sitting in chair. She states that she has constant nausea and has been vomiting and having diarrhea (which she describes both as being yellow). Patient also states she's feeling feverish. She denies chills, chest pain or any urinary changes or cough/ respiratory issues. Objective - Vital Signs/Intake and Output Vital Signs (last 24 hours): Temp Pulse Resp BP Pulse Ox 100.8 F H 105 H 20 138/67 96 03/05/17 17:36 03/05/17 17:46 03/05/17 16:00 03/05/17 17:46 03/05/17 16:00 - Medications Medications: Current Medications Acetaminophen (Tylenol 325mg Tab) 650 mg PO Q4 PRN PRN Reason: Pain, Mild (1-3) Last Admin: 03/05/17 16:42 Dose: 650 mg Al Hydrox/Mg Hydrox/Simethicone (Maalox Plus 30 Ml) 30 ml PO BID PRN PRN Reason: Indigestion / Heartburn Atenolol (Tenormin) 12.5 mg PO DAILY [facility] Last Admin: 03/03/17 09:18 Dose: 12.5 mg Benzocaine/Menthol (Cepacol Sore Throat) 1 phill MT Q2H PRN PRN Reason: Sore Throat Famotidine (Pepcid) 20 mg IVP DAILY [facility] Last Admin: 03/05/17 09:48 Dose: 20 mg Heparin Sodium (Porcine) (Heparin) 5,000 units SC Q8 [facility] PRN Reason: Protocol Last Admin: 03/05/17 16:07 Dose: 5,000 units Hydralazine HCl (Apresoline) 10 mg IVP Q6 PRN PRN Reason: Systolic Blood Pressure Metronidazole (Flagyl) 500 mg in 100 mls @ 100 mls/hr IVPB Q8 [facility] PRN Reason: Protocol Last Admin: 03/05/17 16:05 Dose: 100 mls/hr Piperacillin Sod/Tazobactam Sod (Zosyn 3.375 In Ns 100ml) 100 mls @ 200 mls/hr IVPB Q6 [facility] PRN Reason: Protocol Stop: 03/06/17 00:29 Last Admin: 03/05/17 17:47 Dose: 200 mls/hr Sodium Chloride (Sodium Chloride 0.9%) 1,000 mls @ 100 mls/hr IV .Q10H [facility] Last Admin: 03/05/17 17:45 Dose: 100 mls/hr Levothyroxine Sodium (Synthroid) 125 mcg PO ACB [facility] Last Admin: 03/05/17 09:48 Dose: 125 mcg Losartan Potassium (Cozaar) 50 mg PO BID [facility] Last Admin: 03/05/17 17:46 Dose: 50 mg Metoclopramide HCl (Reglan) 10 mg IV ONCE PRN PRN Reason: Nausea/Vomiting Ondansetron HCl (Zofran Inj) 4 mg IVP Q4H PRN PRN Reason: Nausea/Vomiting Last Admin: 03/05/17 09:48 Dose: 4 mg Oxycodone/Acetaminophen (Percocet 5/325 Mg Tab) 1 tab PO Q6H PRN PRN Reason: Pain, moderate (4-7) Stop: 03/08/17 10:47 - Labs Labs: 03/05/17 07:00 03/05/17 15:30 PT 13.0 SECONDS (9.4-12.5) H 03/01/17 11:35 INR 1.13 (0.93-1.08) H 03/01/17 11:35 APTT 32.9 Seconds (25.1-36.5) 03/01/17 11:35 - Additional Findings Additional findings: - Constitutional Appears: Non-toxic, No Acute Distress - Head Exam Head Exam: ATRAUMATIC, NORMOCEPHALIC - Eye Exam Eye Exam: EOMI, Normal appearance, PERRL - ENT Exam ENT Exam: Mucous Membranes Moist - Neck Exam Neck Exam: Normal Inspection - Respiratory Exam Respiratory Exam: Clear to Ausculation Bilateral, NORMAL BREATHING PATTERN - Cardiovascular Exam Cardiovascular Exam: REGULAR RHYTHM, +S1, +S2. absent: Tachycardia - GI/Abdominal Exam GI & Abdominal Exam: Soft, Tenderness (mild, epigastric), Normal Bowel Sounds - Extremities Exam Extremities Exam: absent: Calf Tenderness, Pedal Edema - Neurological Exam Neurological Exam: Alert, Awake, Oriented x3 - Psychiatric Exam Psychiatric exam: Normal Affect, Normal Mood - Skin Skin Exam: Dry, Intact, Normal Color Assessment and Plan - Assessment and Plan (Free Text) Assessment: 61 year old male with past medical history of hypertension and hypothyroidism who presents to the emergency department for evaluation and treatment of abdominal pain. POD 2 s/p lap elisa Plan: 1. Acute on chronic cholecystitis - Surgery following and recommend against discharge today, will follow labs and clinical picture and make further recommendations - cepacol prescribed - out of bed encouraged - incentive spirometer encouraged - Abdominal pain improving with IV abx, rest, and fluids; still with some abdominal tenderness - patient switched to NPO for bowel rest given n/v - pain control - Continue IV rocephin and flagyl - cont Reglan and Maalox - general surgery consulted- appreciate recommendations 2. Hx of Htn - c/w home losartan - hydralazine 5mg IV q6 prn SBP > 180, holding parameters- do not administer if HR is > 100 bpm 3. Hx of Hypothyrodism - c/w home levothyroxine - TSH wnl 4. Prophylaxis - DVT ppx- subq heparin - GI ppx- famotidine Patient was seen, examined and discussed with attending, Dr. Elen Rachel PGY1 Pager # [phone] <Jere Myrick - Last Filed: 03/05/17 18:26> Objective - Vital Signs/Intake and Output Vital Signs (last 24 hours): Temp Pulse Resp BP Pulse Ox 100.8 F H 105 H 20 138/67 96 03/05/17 17:36 03/05/17 17:46 03/05/17 16:00 03/05/17 17:46 03/05/17 16:00 - Medications Medications: Current Medications Acetaminophen (Tylenol 325mg Tab) 650 mg PO Q4 PRN PRN Reason: Pain, Mild (1-3) Last Admin: 03/05/17 16:42 Dose: 650 mg Al Hydrox/Mg Hydrox/Simethicone (Maalox Plus 30 Ml) 30 ml PO BID PRN PRN Reason: Indigestion / Heartburn Atenolol (Tenormin) 12.5 mg PO DAILY [facility] Last Admin: 03/03/17 09:18 Dose: 12.5 mg Benzocaine/Menthol (Cepacol Sore Throat) 1 phill MT Q2H PRN PRN Reason: Sore Throat Famotidine (Pepcid) 20 mg IVP DAILY [facility] Last Admin: 03/05/17 09:48 Dose: 20 mg Heparin Sodium (Porcine) (Heparin) 5,000 units SC Q8 [facility] PRN Reason: Protocol Last Admin: 03/05/17 16:07 Dose: 5,000 units Hydralazine HCl (Apresoline) 10 mg IVP Q6 PRN PRN Reason: Systolic Blood Pressure Metronidazole (Flagyl) 500 mg in 100 mls @ 100 mls/hr IVPB Q8 [facility] PRN Reason: Protocol Last Admin: 03/05/17 16:05 Dose: 100 mls/hr Piperacillin Sod/Tazobactam Sod (Zosyn 3.375 In Ns 100ml) 100 mls @ 200 mls/hr IVPB Q6 [facility] PRN Reason: Protocol Stop: 03/06/17 00:29 Last Admin: 03/05/17 17:47 Dose: 200 mls/hr Sodium Chloride (Sodium Chloride 0.9%) 1,000 mls @ 100 mls/hr IV .Q10H [facility] Last Admin: 03/05/17 17:45 Dose: 100 mls/hr Levothyroxine Sodium (Synthroid) 125 mcg PO ACB [facility] Last Admin: 03/05/17 09:48 Dose: 125 mcg Losartan Potassium (Cozaar) 50 mg PO BID [facility] Last Admin: 03/05/17 17:46 Dose: 50 mg Metoclopramide HCl (Reglan) 10 mg IV ONCE PRN PRN Reason: Nausea/Vomiting Ondansetron HCl (Zofran Inj) 4 mg IVP Q4H PRN PRN Reason: Nausea/Vomiting Last Admin: 03/05/17 09:48 Dose: 4 mg Oxycodone/Acetaminophen (Percocet 5/325 Mg Tab) 1 tab PO Q6H PRN PRN Reason: Pain, moderate (4-7) Stop: 03/08/17 10:47 - Labs Labs: 03/05/17 07:00 03/05/17 15:30 PT 13.0 SECONDS (9.4-12.5) H 03/01/17 11:35 INR 1.13 (0.93-1.08) H 03/01/17 11:35 APTT 32.9 Seconds (25.1-36.5) 03/01/17 11:35 Attending/Attestation - Attestation I have personally seen and examined this patient.: Yes I have fully participated in the care of the patient.: Yes I have reviewed all pertinent clinical information, including history, physical exam and plan: Yes Notes (Text): 03/05/17 18:25 Attending note; Patient seen and examined with resident. Patient's son and [id number] by the bedside. Patient is a 61-year-old female with a past medical history of hypertension, hypothyroidism is admitted with recurrent abdominal pain. Abdominal ultrasound and CAT scan shows acute on chronic cholecystitis. Status post lap cholecystectomy. has adhesions. Complaining of mild abdominal discomfort. had nausea and vomiting last night. Patient had fever and leukocytosis. ON flagyl. completed IV rocephin. Started on IV zosyn. case discussed with residential coordinator in detail for follow up. Possible discharge home within 24-48 hours if clinically stable.
[2017-03-06] MEDS: Sodium Chloride 0.9% 1,000 ML IV SCH ×2 (05:08→05:09)
[2017-03-06] MEDS: metroNIDAZOLE IV 500 mg/100 ml 500 MG/100 ML BAG IVPB SCH ×3 (05:08→21:43)
[2017-03-06 07:41] LABS: BASO # 0.01 K/mm3 (0.0-2.0); BASO % 0.1 % (0.0-3.0); EOS % 0.1 % (1.5-5.0); GRAN # 13.2 (1.4-6.5); GRAN % 85.2 % (50.0-68.0); HEMOGLOBIN 10.7 g/dL (12.0-16.0); LYMPH # 1.4 (1.2-3.4); MEAN CELL VOLUME 89.6 fl (80.0-105.0); MEAN CORPUSCULAR HEMOGLOBIN 27.2 pg (25.0-35.0); MEAN CORPUSCULAR HGB CONC 30.4 g/dl (31.0-37.0); MEAN PLATELET VOLUME 9.8 fl (7.0-11.0); MONO # 0.9 (0.1-0.6); MONO % 5.6 % (1.0-6.0); RBC 3.93 10^6/uL (3.5-6.1); WHITE BLOOD COUNT 15.5 10^3/ul (4.5-11.0)
[2017-03-06 08:00] LABS: ALB/GLOB RATIO 0.9 (1.1-1.8); ALT/SGPT 24 U/L (7-56); AST/SGOT 15 U/L (14-36); BLOOD UREA NITROGEN 4 mg/dL (7-21); CALCIUM 8.4 mg/dL (8.4-10.5); GFR AFRICAN-AMERICAN > 60; GFR NON-AFRICAN AMERICAN > 60
--- NOTE | 2017-03-06 08:13 | CP.PCM.PN ---
Subjective - Date & Time of Evaluation Date of Evaluation: 03/06/17 Time of Evaluation: 07:00 - Subjective Subjective: GENERAL SURGERY PROGRESS NOTE FOR DR. FIGUEROA Patient seen and examined at bedside. She had 2 BMs yesterday. She still has epigastric and RUQ pain. She is OOB, ambulating, and using IS. She vomited twice yesterday and was made NPO again. Objective - Vital Signs/Intake and Output Vital Signs (last 24 hours): Temp Pulse Resp BP Pulse Ox 100.8 F H 105 H 20 138/67 96 03/05/17 17:36 03/05/17 17:46 03/05/17 16:00 03/05/17 17:46 03/05/17 16:00 - Medications Medications: Current Medications Acetaminophen (Tylenol 325mg Tab) 650 mg PO Q4 PRN PRN Reason: Pain, Mild (1-3) Last Admin: 03/05/17 16:42 Dose: 650 mg Al Hydrox/Mg Hydrox/Simethicone (Maalox Plus 30 Ml) 30 ml PO BID PRN PRN Reason: Indigestion / Heartburn Atenolol (Tenormin) 12.5 mg PO DAILY [facility] Last Admin: 03/03/17 09:18 Dose: 12.5 mg Benzocaine/Menthol (Cepacol Sore Throat) 1 phill MT Q2H PRN PRN Reason: Sore Throat Famotidine (Pepcid) 20 mg IVP DAILY [facility] Last Admin: 03/05/17 09:48 Dose: 20 mg Heparin Sodium (Porcine) (Heparin) 5,000 units SC Q8 [facility] PRN Reason: Protocol Last Admin: 03/06/17 05:08 Dose: 5,000 units Hydralazine HCl (Apresoline) 10 mg IVP Q6 PRN PRN Reason: Systolic Blood Pressure Metronidazole (Flagyl) 500 mg in 100 mls @ 100 mls/hr IVPB Q8 [facility] PRN Reason: Protocol Last Admin: 03/06/17 05:08 Dose: 100 mls/hr Sodium Chloride (Sodium Chloride 0.9%) 1,000 mls @ 100 mls/hr IV .Q10H [facility] Last Admin: 03/06/17 05:09 Dose: Not Given Levothyroxine Sodium (Synthroid) 125 mcg PO ACB [facility] Last Admin: 03/05/17 09:48 Dose: 125 mcg Losartan Potassium (Cozaar) 50 mg PO BID [facility] Last Admin: 03/05/17 17:46 Dose: 50 mg Metoclopramide HCl (Reglan) 10 mg IV ONCE PRN PRN Reason: Nausea/Vomiting Ondansetron HCl (Zofran Inj) 4 mg IVP Q4H PRN PRN Reason: Nausea/Vomiting Last Admin: 03/05/17 09:48 Dose: 4 mg Oxycodone/Acetaminophen (Percocet 5/325 Mg Tab) 1 tab PO Q6H PRN PRN Reason: Pain, moderate (4-7) Stop: 03/08/17 10:47 - Labs Labs: 03/06/17 07:00 03/06/17 07:00 PT 13.0 SECONDS (9.4-12.5) H 03/01/17 11:35 INR 1.13 (0.93-1.08) H 03/01/17 11:35 APTT 32.9 Seconds (25.1-36.5) 03/01/17 11:35 - Constitutional Appears: Non-toxic, No Acute Distress - Head Exam Head Exam: ATRAUMATIC, NORMAL INSPECTION - Eye Exam Eye Exam: EOMI, Normal appearance - Respiratory Exam Respiratory Exam: NORMAL BREATHING PATTERN. absent: Respiratory Distress - Cardiovascular Exam Cardiovascular Exam: Tachycardia (mild), +S1, +S2 - GI/Abdominal Exam GI & Abdominal Exam: Soft, Tenderness (tender RUQ/epigastric). absent: Distended, Firm, Guarding, Rigid, Rebound Additional comments: Dermabond in place over 2 laparoscopic incisions - Neurological Exam Neurological Exam: Alert, Awake, Oriented x3 - Psychiatric Exam Psychiatric exam: Normal Affect, Normal Mood - Skin Skin Exam: Dry, Normal Color, Warm Assessment and Plan - Assessment and Plan (Free Text) Assessment: 61yo F with PMHx of HTN, hypothyroidism, asthma with acute on chronic cholecystitis s/p laparoscopic cholecystectomy POD#3 - Tmax 101.1, mild tachycardia - Leukocytosis WBC 15.3 (16.3 yesterday) - Heparin PPx - Continue IV Abx - Clear Liquid diet - Physical therapy ordered to encourage ambulation - Encouraged OOB, ambulation, and IS use - Discussed plan with Dr. Guerline Roberts PGY-3
[2017-03-06] MEDS: Levothyroxine 125 MCG TAB PO SCH (08:38)
[2017-03-06] MEDS ORDERED: Potassium Chloride 20 mEq ER Tab PO ONE (08:54)
[2017-03-06] MEDS: cefTRIAXone 2 GM IN NS 2 GM/100 ML BAG IVPB SCH (09:32)
[2017-03-06] MEDS ORDERED: Potassium Chloride 40 mEq/30 ml LIQ UD PO ONE (14:01)
--- NOTE | 2017-03-06 18:09 | CP.PCM.PN ---
<Lisa Stanley - Last Filed: 03/06/17 18:06> Subjective - Date & Time of Evaluation Date of Evaluation: 03/06/17 Time of Evaluation: 07:30 - Subjective Subjective: Kamaljit Rachel PGY1 IM Progress Note Patient was seen and examined at bedside as she is sitting in chair. She reports improvement in her nausea, though still without an appetite and still occasionally nauseous. She did vomit this morning with a large pill. She is no longer having diarrhea, and denies fever, chills, chest pain, shortness of breath, dysuria. Objective - Vital Signs/Intake and Output Vital Signs (last 24 hours): Temp Pulse Resp BP Pulse Ox 98.9 F 97 H 20 124/64 97 03/06/17 16:04 03/06/17 16:04 03/06/17 16:04 03/06/17 16:04 03/06/17 16:04 Intake and Output: 03/06/17 03/06/17 06:59 18:59 Intake Total 480 Balance 480 - Medications Medications: Current Medications Acetaminophen (Tylenol 325mg Tab) 650 mg PO Q4 PRN PRN Reason: Pain, Mild (1-3) Last Admin: 03/05/17 16:42 Dose: 650 mg Al Hydrox/Mg Hydrox/Simethicone (Maalox Plus 30 Ml) 30 ml PO BID PRN PRN Reason: Indigestion / Heartburn Atenolol (Tenormin) 12.5 mg PO DAILY [facility] Last Admin: 03/03/17 09:18 Dose: 12.5 mg Benzocaine/Menthol (Cepacol Sore Throat) 1 phill MT Q2H PRN PRN Reason: Sore Throat Famotidine (Pepcid) 20 mg IVP DAILY [facility] Last Admin: 03/06/17 11:35 Dose: 20 mg Heparin Sodium (Porcine) (Heparin) 5,000 units SC Q8 JIM PRN Reason: Protocol Last Admin: 03/06/17 14:31 Dose: 5,000 units Hydralazine HCl (Apresoline) 10 mg IVP Q6 PRN PRN Reason: Systolic Blood Pressure Metronidazole (Flagyl) 500 mg in 100 mls @ 100 mls/hr IVPB Q8 JIM PRN Reason: Protocol Last Admin: 03/06/17 14:31 Dose: 100 mls/hr Sodium Chloride (Sodium Chloride 0.9%) 1,000 mls @ 100 mls/hr IV .Q10H [facility] Last Admin: 03/06/17 05:09 Dose: Not Given Ceftriaxone Sodium (Rocephin 2 Gm Ivpb) 2 gm in 100 mls @ 100 mls/hr IVPB DAILY JIM PRN Reason: Protocol Last Admin: 03/06/17 09:32 Dose: 100 mls/hr Levothyroxine Sodium (Synthroid) 125 mcg PO ACB [facility] Last Admin: 03/06/17 08:38 Dose: 125 mcg Losartan Potassium (Cozaar) 50 mg PO BID [facility] Last Admin: 03/06/17 09:17 Dose: 50 mg Metoclopramide HCl (Reglan) 10 mg IV ONCE PRN PRN Reason: Nausea/Vomiting Ondansetron HCl (Zofran Inj) 4 mg IVP Q4H PRN PRN Reason: Nausea/Vomiting Last Admin: 03/06/17 09:36 Dose: 4 mg - Labs Labs: 03/06/17 07:00 03/06/17 07:00 PT 13.0 SECONDS (9.4-12.5) H 03/01/17 11:35 INR 1.13 (0.93-1.08) H 03/01/17 11:35 APTT 32.9 Seconds (25.1-36.5) 03/01/17 11:35 - Constitutional Appears: Non-toxic, No Acute Distress - Head Exam Head Exam: ATRAUMATIC, NORMOCEPHALIC - Eye Exam Eye Exam: EOMI, Normal appearance, PERRL - ENT Exam ENT Exam: Mucous Membranes Moist - Neck Exam Neck Exam: Normal Inspection - Respiratory Exam Respiratory Exam: Clear to Ausculation Bilateral, NORMAL BREATHING PATTERN - Cardiovascular Exam Cardiovascular Exam: RRR, +S1, +S2 - GI/Abdominal Exam GI & Abdominal Exam: Soft, Tenderness (Exquisite RUQ tenderness), Normal Bowel Sounds. absent: Distended, Firm, Guarding, Rigid, Rebound - Extremities Exam Extremities Exam: absent: Calf Tenderness, Pedal Edema - Neurological Exam Neurological Exam: Alert, Awake, Oriented x3 - Psychiatric Exam Psychiatric exam: Normal Affect, Normal Mood - Skin Skin Exam: Dry, Intact, Normal Color Assessment and Plan - Assessment and Plan (Free Text) Assessment: 61 year old male with past medical history of hypertension and hypothyroidism who presents to the emergency department for evaluation and treatment of abdominal pain. POD 3 s/p lap elisa Plan: 1. Acute on chronic cholecystitis s/p lap elisa - Patient still not tolerating diet; complaining of nausea; with marked RUQ abdominal tenderness - Fevers resolved, leukocytosis slightly improved since yesterday - out of bed encouraged - incentive spirometer encouraged - Abdominal pain unchanged since yesterday - Patient started on clear liquids this morning; advance diet as tolerated - If patient continues to be unable to tolerate diet, will order MRCP to r/o choledocholithiasis or bile leak, though low suspicion - pain control - Continue IV rocephin and flagyl - cont zofran, Reglan and Maalox - general surgery consulted- appreciate recommendations 2. Hx of Htn - c/w home losartan - hydralazine 5mg IV q6 prn SBP > 180, holding parameters- do not administer if HR is > 100 bpm 3. Hx of Hypothyrodism - c/w home levothyroxine - TSH wnl 4. Prophylaxis - DVT ppx- subq heparin - GI ppx- famotidine Patient was seen, examined and discussed with attending, Dr. Vazquez <Simone Vazquez - Last Filed: 03/07/17 15:55> Objective - Vital Signs/Intake and Output Vital Signs (last 24 hours): Temp Pulse Resp BP Pulse Ox 98.4 F 88 20 123/66 99 03/07/17 06:00 03/07/17 06:00 03/07/17 06:00 03/07/17 06:00 03/07/17 06:00 Intake and Output: 03/07/17 03/07/17 06:59 18:59 Intake Total 780 Balance 780 - Medications Medications: Current Medications Acetaminophen (Tylenol 325mg Tab) 650 mg PO Q4 PRN PRN Reason: Pain, Mild (1-3) Last Admin: 03/06/17 23:00 Dose: 650 mg Al Hydrox/Mg Hydrox/Simethicone (Maalox Plus 30 Ml) 30 ml PO BID PRN PRN Reason: Indigestion / Heartburn Arformoterol Tartrate (Brovana) 15 mcg IH [id number] JIM Atenolol (Tenormin) 12.5 mg PO DAILY JIM Last Admin: 03/03/17 09:18 Dose: 12.5 mg Benzocaine/Menthol (Cepacol Sore Throat) 1 phill MT Q2H PRN PRN Reason: Sore Throat Budesonide (Pulmicort Respules) 0.5 mg IH [id number] [facility] Famotidine (Pepcid) 20 mg IVP DAILY [facility] Last Admin: 03/07/17 09:55 Dose: 20 mg Heparin Sodium (Porcine) (Heparin) 5,000 units SC Q8 JIM PRN Reason: Protocol Last Admin: 03/07/17 05:38 Dose: 5,000 units Hydralazine HCl (Apresoline) 10 mg IVP Q6 PRN PRN Reason: Systolic Blood Pressure Metronidazole (Flagyl) 500 mg in 100 mls @ 100 mls/hr IVPB Q8 [facility] PRN Reason: Protocol Last Admin: 03/07/17 05:38 Dose: 100 mls/hr Sodium Chloride (Sodium Chloride 0.9%) 1,000 mls @ 100 mls/hr IV .Q10H [facility] Last Admin: 03/06/17 05:09 Dose: Not Given Ceftriaxone Sodium (Rocephin 2 Gm Ivpb) 2 gm in 100 mls @ 100 mls/hr IVPB DAILY [facility] PRN Reason: Protocol Stop: 03/10/17 10:59 Last Admin: 03/07/17 11:27 Dose: 100 mls/hr Levothyroxine Sodium (Synthroid) 125 mcg PO ACB [facility] Last Admin: 03/07/17 09:53 Dose: 125 mcg Losartan Potassium (Cozaar) 50 mg PO BID [facility] Last Admin: 03/07/17 09:53 Dose: 50 mg Metoclopramide HCl (Reglan) 10 mg IV ONCE PRN PRN Reason: Nausea/Vomiting Ondansetron HCl (Zofran Inj) 4 mg IVP Q4H PRN PRN Reason: Nausea/Vomiting Last Admin: 03/06/17 09:36 Dose: 4 mg Simethicone (Mylicon Chew Tab) 80 mg PO PCHS PRN PRN Reason: GI distress Last Admin: 03/07/17 09:53 Dose: 80 mg - Labs Labs: 03/07/17 06:45 03/07/17 06:45 PT 13.0 SECONDS (9.4-12.5) H 03/01/17 11:35 INR 1.13 (0.93-1.08) H 03/01/17 11:35 APTT 32.9 Seconds (25.1-36.5) 03/01/17 11:35 Attending/Attestation - Attestation I have personally seen and examined this patient.: Yes I have fully participated in the care of the patient.: Yes I have reviewed all pertinent clinical information, including history, physical exam and plan: Yes Notes (Text): I have seen and examined the patient at bedside. Agree with the above note with the following additions/ exceptions: Briefly this is 61 year old female with histiry of HTN, hypothyroidism, morbid obesity who was admitted with acute on chronic cholecystitis. She underwent cholecystectomy and TEJAS. Patient complained of discomfort and persistent nausea. Appetite reduced and abdomen is tender. There is a concern for possible bile leak vs pain secondary to TEJAS. Will discuss with surgeon regarding possible MRCP or HIDA. She also had fever and has leukocytosis. Continue IVF, analgesics, antiemetics, rocephin and flagyl. Continue levothyroxine. Upon discharge patient will follow up with PMD of choice or [facility] clinic. Dr Simone Vazquez
[2017-03-07] MEDS: metroNIDAZOLE IV 500 mg/100 ml 500 MG/100 ML BAG IVPB SCH (05:38)
[2017-03-07 07:34] LABS: BASO # 0.02 K/mm3 (0.0-2.0); BASO % 0.1 % (0.0-3.0); EOS # 0.1 (0.0-0.7); EOS % 0.5 % (1.5-5.0); GRAN # 11.22 (1.4-6.5); GRAN % 80.4 % (50.0-68.0); HEMOGLOBIN 10.8 g/dL (12.0-16.0); LYMPH # 1.7 (1.2-3.4); LYMPH % 12.1 % (22.0-35.0); MEAN CELL VOLUME 90.5 fl (80.0-105.0); MEAN CORPUSCULAR HGB CONC 29.8 g/dl (31.0-37.0); MEAN PLATELET VOLUME 10.1 fl (7.0-11.0); MONO % 6.9 % (1.0-6.0); RED CELL DISTRIBUTION WIDTH 14.1 % (11.5-14.5)
[2017-03-07 07:53] LABS: BLOOD UREA NITROGEN 3 mg/dL (7-21); GFR AFRICAN-AMERICAN > 60; GFR NON-AFRICAN AMERICAN > 60
[2017-03-07 07:54] LABS: ALB/GLOB RATIO 0.8 (1.1-1.8); ALT/SGPT 18 U/L (7-56); AST/SGOT 27 U/L (14-36)
[2017-03-07 08:35] VITALS: PULSE 88
[2017-03-07] MEDS ORDERED: Simethicone 80 mg Chewtab PO PRN (09:27)
[2017-03-07] MEDS: Levothyroxine 125 MCG TAB PO SCH (09:53)
[2017-03-07] MEDS ORDERED: Fluticasone-Salmeterol 250-50mcg Diskus IH SCH ×2 (10:00)
[2017-03-07] MEDS: cefTRIAXone 2 GM IN NS 2 GM/100 ML BAG IVPB SCH (11:27)
--- NOTE | 2017-03-07 11:52 | RAD ---
HISTORY: leukocytosis s/p OR COMPARISON: 02/28/2017 FINDINGS: LUNGS: No active pulmonary disease. PLEURA: No significant pleural effusion identified, no pneumothorax apparent. CARDIOVASCULAR: Normal. OSSEOUS STRUCTURES: No significant abnormalities. VISUALIZED UPPER ABDOMEN: Normal. OTHER FINDINGS: None. IMPRESSION: No active disease.
--- NOTE | 2017-03-07 11:53 | OP ---
PROCEDURE DATE: 03/03/2017 PREOPERATIVE DIAGNOSES: Chronic cholecystitis and cholelithiasis. POSTOPERATIVE DIAGNOSES: Chronic cholecystitis and cholelithiasis. PROCEDURE PERFORMED: Laparoscopic cholecystectomy with attempted intraoperative cholangiogram. SURGEON: Ousmane Cunha MD CABLE TESTER: Dr. Roberts and Dr. Macario. TYPE OF ANESTHESIA: General endotracheal anesthesia. ANESTHESIOLOGIST: Dr. Stanton. ESTIMATED BLOOD LOSS: Minimal. SPECIMEN: Gallbladder with gallstones. INDICATIONS: The patient is a 61-year-old female admitted to the hospital with complaints of recurrent right upper quadrant abdominal pain, associated nausea, and occasional vomiting. The patient was worked up and the decision was made to proceed with laparoscopic cholecystectomy for cholelithiasis. DESCRIPTION OF PROCEDURE: First, a standard time-out procedure took place, when everybody in the room agreed as to the patient's identity, diagnosis, and procedure to be performed. Using 2 towel clips, the anterior abdominal wall was elevated and Veress needle was inserted through a small incision superior to the umbilicus. Once the pneumoperitoneum was obtained, a 12-mm trocar was inserted through this incision and careful evaluation of abdominal cavity revealed the presence of adhesions of the omentum to the gallbladder and completely covering it underneath the omentum. I then placed a second 5-mm trocar in the subxiphoid position and proceeded with careful dissection of the omentum off the gallbladder. A tedious dissection was done in order to remove all the adhesions. Once the gallbladder was exposed, it was carefully elevated with a clamp and dissected down towards the infundibulum. Once the adhesions were taken down, and the infundibulum was exposed, we carefully dissected the area of the cystic duct, from the adjacent cystic artery and proceeded to clamp it proximally. A small incision was made on the side of the cystic duct and a cholangiocatheter was inserted into the cystic duct. Under direct visualization with fluoroscopy, an attempted cholangiogram was performed with leaking of the dye, secondary to the large size of the duct. I was unable to fully visualize the entire duct and therefore, at this point, after several attempts, we proceeded with abandoning the procedure and clipped the cystic duct distally and transected it. The cystic artery was also from the surrounding tissue, clipped and transected. Using electrocautery, the gallbladder was carefully taken off the liver bed, and after tedious dissection secondary to dense adhesions of the gallbladder to the liver bed. Once this was completed, the gallbladder was placed into the EndoCatch bag and removed through the periumbilical incision. The abdominal cavity and the right upper quadrant was copiously irrigated. All the irrigant fluid was suctioned out. There was excellent hemostasis noted. The gallbladder once removed from the abdominal cavity was visualized, noted to have several stones. The pneumoperitoneum was now released, trocars removed and the wound was closed using 0-Vicryl for the fascia, 3-0 Vicryl for subcutaneous tissue, and 4-0 Monocryl for the skin. A sterile Dermabond dressing was applied to the wound. The patient tolerated the procedure well and there were no complications. The patient was awakened, extubated, and transferred to the recovery room for further observation. Ousmane Cunha MD
--- NOTE | 2017-03-07 13:17 | CP.PCM.PN ---
Subjective - Date & Time of Evaluation Date of Evaluation: 03/07/17 Time of Evaluation: 07:00 - Subjective Subjective: GENERAL SURGERY PROGRESS NOTE FOR DR. FIGUEROA Patient seen and examined at bedside. She has not had any more vomiting. She felt nauseous yesterday. Feels "gassy" now. She is passing flatus. Objective - Vital Signs/Intake and Output Vital Signs (last 24 hours): Temp Pulse Resp BP Pulse Ox 98.4 F 88 20 123/66 99 03/07/17 06:00 03/07/17 06:00 03/07/17 06:00 03/07/17 06:00 03/07/17 06:00 Intake and Output: 03/07/17 03/07/17 06:59 18:59 Intake Total 780 Balance 780 - Medications Medications: Current Medications Acetaminophen (Tylenol 325mg Tab) 650 mg PO Q4 PRN PRN Reason: Pain, Mild (1-3) Last Admin: 03/06/17 23:00 Dose: 650 mg Al Hydrox/Mg Hydrox/Simethicone (Maalox Plus 30 Ml) 30 ml PO BID PRN PRN Reason: Indigestion / Heartburn Arformoterol Tartrate (Brovana) 15 mcg IH [id number] REPLACED BY [facility] Atenolol (Tenormin) 12.5 mg PO DAILY [facility] Last Admin: 03/03/17 09:18 Dose: 12.5 mg Benzocaine/Menthol (Cepacol Sore Throat) 1 phill MT Q2H PRN PRN Reason: Sore Throat Budesonide (Pulmicort Respules) 0.5 mg IH [id number] REPLACED BY [facility] Famotidine (Pepcid) 20 mg IVP DAILY [facility] Last Admin: 03/07/17 09:55 Dose: 20 mg Heparin Sodium (Porcine) (Heparin) 5,000 units SC Q8 JIM PRN Reason: Protocol Last Admin: 03/07/17 05:38 Dose: 5,000 units Hydralazine HCl (Apresoline) 10 mg IVP Q6 PRN PRN Reason: Systolic Blood Pressure Metronidazole (Flagyl) 500 mg in 100 mls @ 100 mls/hr IVPB Q8 JIM PRN Reason: Protocol Last Admin: 03/07/17 05:38 Dose: 100 mls/hr Sodium Chloride (Sodium Chloride 0.9%) 1,000 mls @ 100 mls/hr IV .Q10H [facility] Last Admin: 03/06/17 05:09 Dose: Not Given Ceftriaxone Sodium (Rocephin 2 Gm Ivpb) 2 gm in 100 mls @ 100 mls/hr IVPB DAILY [facility] PRN Reason: Protocol Stop: 03/10/17 10:59 Last Admin: 03/07/17 11:27 Dose: 100 mls/hr Levothyroxine Sodium (Synthroid) 125 mcg PO ACB [facility] Last Admin: 03/07/17 09:53 Dose: 125 mcg Losartan Potassium (Cozaar) 50 mg PO BID [facility] Last Admin: 03/07/17 09:53 Dose: 50 mg Metoclopramide HCl (Reglan) 10 mg IV ONCE PRN PRN Reason: Nausea/Vomiting Ondansetron HCl (Zofran Inj) 4 mg IVP Q4H PRN PRN Reason: Nausea/Vomiting Last Admin: 03/06/17 09:36 Dose: 4 mg Simethicone (Mylicon Chew Tab) 80 mg PO HS PRN PRN Reason: GI distress Last Admin: 03/07/17 09:53 Dose: 80 mg - Labs Labs: 03/07/17 06:45 03/07/17 06:45 PT 13.0 SECONDS (9.4-12.5) H 03/01/17 11:35 INR 1.13 (0.93-1.08) H 03/01/17 11:35 APTT 32.9 Seconds (25.1-36.5) 03/01/17 11:35 - Constitutional Appears: Non-toxic, No Acute Distress - Head Exam Head Exam: ATRAUMATIC, NORMAL INSPECTION - Eye Exam Eye Exam: EOMI, Normal appearance - Respiratory Exam Respiratory Exam: NORMAL BREATHING PATTERN. absent: Respiratory Distress - Cardiovascular Exam Cardiovascular Exam: +S1, +S2. absent: Tachycardia - GI/Abdominal Exam GI & Abdominal Exam: Soft, Tenderness (mild tenderness in RUQ (less than yesterday)). absent: Distended, Firm, Guarding, Rigid, Rebound Additional comments: 2 laparoscopic incision sites with dermabond in place - Neurological Exam Neurological Exam: Alert, Awake, Oriented x3 - Psychiatric Exam Psychiatric exam: Normal Affect, Normal Mood - Skin Skin Exam: Dry, Normal Color, Warm Assessment and Plan - Assessment and Plan (Free Text) Assessment: 61yo F with PMHx of HTN, hypothyroidism, asthma with acute on chronic cholecystitis s/p laparoscopic cholecystectomy POD#4 - Afebrile past 24 hours - Leukocytosis WBC 14.0 (decreased slightly from yesterday) - Bilirubin, LFTs WNL - Continue IV Abx - Low fat diet - Physical therapy ordered to encourage ambulation - CXR done due to continued leukocytosis but was negative for active disease - HIDA ordered to rule out bile leak - Encouraged OOB, ambulation, and IS use - Discussed plan with Dr. Guerline Roberts PGY-3
[2017-03-07] MEDS ORDERED: Arformoterol 15 mcg/2 ml Inh Sol IH SCH (13:50)
[2017-03-07] MEDS ORDERED: Budesonide 0.5 mg/2 ml Inhal Susp UD IH SCH (13:50)
--- NOTE | 2017-03-07 16:55 | CP.PCM.DIS ---
<Lisa Stanley - Last Filed: 03/07/17 16:48> Provider - Provider Date of Admission: 03/01/17 02:44 Attending physician: Simone Vazquez MD Primary care physician: NO PRIMARY CARE PROVIDER Consults: General Surgery: Guerline Time Spent in preparation of Discharge (in minutes): 55 Diagnosis - Discharge Diagnosis (1) Cholecystitis Status: Acute Hospital Course - Lab Results Lab Results: Micro Results 03/06/17 11:30 Stool C. difficile Antigen & Toxin A,B (M - Final Most Recent Lab Values WBC 14.0 10^3/ul (4.5-11.0) H 03/07/17 06:45 RBC 4.00 10^6/uL (3.5-6.1) 03/07/17 06:45 Hgb 10.8 g/dL (12.0-16.0) L 03/07/17 06:45 Hct 36.2 % (36.0-48.0) 03/07/17 06:45 MCV 90.5 fl (80.0-105.0) 03/07/17 06:45 MCH 27.0 pg (25.0-35.0) 03/07/17 06:45 MCHC 29.8 g/dl (31.0-37.0) L 03/07/17 06:45 RDW 14.1 % (11.5-14.5) 03/07/17 06:45 Plt Count 296 10^3/uL (120.0-450.0) 03/07/17 06:45 MPV 10.1 fl (7.0-11.0) 03/07/17 06:45 Gran % 80.4 % (50.0-68.0) H 03/07/17 06:45 Lymph % (Auto) 12.1 % (22.0-35.0) L 03/07/17 06:45 [place] % (Auto) 6.9 % (1.0-6.0) H 03/07/17 06:45 Eos % (Auto) 0.5 % (1.5-5.0) L 03/07/17 06:45 Baso % (Auto) 0.1 % (0.0-3.0) 03/07/17 06:45 Gran # 11.22 (1.4-6.5) H 03/07/17 06:45 Lymph # 1.7 (1.2-3.4) 03/07/17 06:45 [place] # 1.0 (0.1-0.6) H 03/07/17 06:45 Eos # 0.1 (0.0-0.7) 03/07/17 06:45 Baso # 0.02 K/mm3 (0.0-2.0) 03/07/17 06:45 PT 13.0 SECONDS (9.4-12.5) H 03/01/17 11:35 INR 1.13 (0.93-1.08) H 03/01/17 11:35 APTT 32.9 Seconds (25.1-36.5) 03/01/17 11:35 Sodium 139 mmol/L (132-148) 03/07/17 06:45 Potassium 4.1 mmol/L (3.6-5.0) 03/07/17 06:45 Chloride 103 mmol/L (98-107) 03/07/17 06:45 Carbon Dioxide 29 mmol/L (21-33) 03/07/17 06:45 Anion Gap 10 (10-20) 03/07/17 06:45 BUN 3 mg/dL (7-21) L 03/07/17 06:45 Creatinine 0.4 mg/dl (0.7-1.2) L 03/07/17 06:45 Est GFR ( Amer) > 60 03/07/17 06:45 Est GFR (Non-Af Amer) > 60 03/07/17 06:45 Random Glucose 99 mg/dL (70-110) 03/07/17 06:45 Hemoglobin A1c 6.0 % (4.2-6.5) 03/01/17 08:00 Calcium 8.0 mg/dL (8.4-10.5) L 03/07/17 06:45 Magnesium 1.8 mg/dL (1.7-2.2) 02/28/17 22:13 Total Bilirubin 0.6 mg/dL (0.2-1.3) 03/07/17 06:45 AST 27 U/L (14-36) 03/07/17 06:45 ALT 18 U/L (7-56) 03/07/17 06:45 Alkaline Phosphatase 74 U/L (38-126) 03/07/17 06:45 Lactate Dehydrogenase 423 U/L (333-699) 02/28/17 22:13 Total Creatine Kinase 42 U/L (35-230) 02/28/17 22:13 Troponin I < 0.01 ng/mL 03/02/17 07:00 Total Protein 6.8 g/dL (5.8-8.3) 03/07/17 06:45 Albumin 3.0 g/dL (3.0-4.8) 03/07/17 06:45 Globulin 3.9 gm/dL 03/07/17 06:45 Albumin/Globulin Ratio 0.8 (1.1-1.8) L 03/07/17 06:45 Triglycerides 101 mg/dL (35-160) 03/01/17 08:00 Cholesterol 128 mg/dL (130-200) L 03/01/17 08:00 LDL Cholesterol Direct 72 mg/dL (0-129) 03/01/17 08:00 HDL Cholesterol 34 mg/dL (29-60) 03/01/17 08:00 Lipase 81 U/L (23-300) 02/28/17 22:13 TSH 3rd Generation 3.80 mIU/mL (0.46-4.68) 03/01/17 08:00 Urine Color Yellow (YELLOW) 03/02/17 15:30 Urine Appearance Clear (CLEAR) 03/02/17 15:30 Urine pH 7.0 (4.7-8.0) 03/02/17 15:30 Ur Specific [place] 1.010 (1.005-1.035) 03/02/17 15:30 Urine Protein Negative mg/dL (<30 mg/dL) 03/02/17 15:30 Urine Glucose (UA) Negative mg/dL (NEGATIVE) 03/02/17 15:30 Urine Ketones Negative mg/dL (NEGATIVE) 03/02/17 15:30 Urine Blood Negative (NEGATIVE) 03/02/17 15:30 Urine Nitrate Negative (NEGATIVE) 03/02/17 15:30 Urine Bilirubin Negative (NEGATIVE) 03/02/17 15:30 Urine Urobilinogen 0.2 E.U./dL (<1 E.U./dL) 03/02/17 15:30 Ur Leukocyte Esterase Trace Tammy/uL (NEGATIVE) H 03/02/17 15:30 Urine RBC 0 - 2 /hpf (0-2) 03/02/17 15:30 Urine WBC 1 - 3 /hpf (0-6) 03/02/17 15:30 Ur Epithelial Cells 1 - 3 /hpf (0-5) 03/02/17 15:30 Urine Bacteria Rare (NEG) 03/02/17 15:30 - Hospital Course Hospital Course: 61 year old female with past medical history of hypertension, hypothyroidism, and asthma initially presented to the emergency department complaining of recurrent postprandial RUQ abdominal pain. Noted to have acute on chronic cholecystitis. Patient was evaluated by cardiology and cleared for surgery. She underwent laparascopic cholecystectomy. Intraoperatively, noted to have very inflamed gallbladder with much of the abdominal contents adherent to the inflamed region. She had significant postoperative pain and nausea, and did not initially tolerate a diet. Her pain and nausea got progressively better and today, she reports that last night she was able to eat a sandwich, and did walk around the floor, and did have a bowel movement. She was complaining of bloating in the morning, which resolved with one dose of simethicone. She denies any chest pain, shortness of breath, diarrhea, constipation, vomiting, fever, or chills. She denies any abdominal pain, but does have some mild tenderness. She would like to eat, but does not like the food in the hospital. Patient had a HIDA scan today to rule out bile leak, but her pain, nausea, and appetite are all improving spontaneously, so a bile leak is extremely unlikely. Patient was given prescriptions for all her maintenance medications, which she ran out of prior to admission, in addition to a course of antibiotics. She was also given follow up instructions. All questions were answered to her and her family's satisfaction, and she was discharged to home. Discharge Exam - Head Exam Head Exam: ATRAUMATIC, NORMAL INSPECTION - Eye Exam Eye Exam: EOMI, Normal appearance, PERRL - ENT Exam ENT Exam: Mucous Membranes Moist - Respiratory Exam Respiratory Exam: Clear to PA & Lateral, NORMAL BREATHING PATTERN, UNREMARKABLE - Cardiovascular Exam Cardiovascular Exam: REGULAR RHYTHM, +S1, +S2 - GI/Abdominal Exam GI & Abdominal Exam: Normal Bowel Sounds, Soft, Tenderness (mild, RUQ). absent : Distended, Firm, Guarding, Rebound, Rigid - Extremities Exam Extremities exam: normal inspection - Neurological Exam Neurological exam: Alert, CN II-XII Intact, Oriented x3 - Psychiatric Exam Psychiatric exam: Normal Affect, Normal Mood - Skin Skin Exam: Dry, Intact, Normal Color Discharge Plan - Discharge Medications Prescriptions: Ciprofloxacin HCl [Cipro] 500 mg PO Q12 #16 tab Fluticasone/Salmeterol 250/50 [Advair Diskus 250/50] 1 puff IH Q12 #1 dsk Levothyroxine [Synthroid] 125 mcg PO DAILY #30 tab Losartan Potassium 50 mg PO BID #60 tablet Metronidazole [Flagyl] 500 mg PO Q8 #24 tablet Simethicone [Mylicon Chew Tab] 80 mg PO PCHS PRN #10 chew PRN Reason: Gi Distress - Follow Up Plan Condition: STABLE Disposition: HOME/ ROUTINE Instructions: Cholecystitis (DC), Laparoscopic Cholecystectomy (DC), Acute Abdominal Pain (DC) Additional Instructions: 1. Continue to take antibiotics as prescribed for 8 more days, even if you feel better 2. Drink plenty of fluids 3. Avoid fatty meals or large meals 4. Follow up at the [facility] clinic within one week 5. Follow up with Dr. Cuhna in one week 6. Continue to take all other medications as prescribed 7. For any new or worsening concerns, especially persistent fever or severe, intolerable abdominal pain associated with fever, nausea, or vomiting, return to the ER Referrals: Ousmane Cunha MD [Staff Provider] - PCP,VIRY [Primary Care Provider] - <Simone Vazquez - Last Filed: 03/07/17 17:32> Provider - Provider Date of Admission: 03/01/17 02:44 Attending physician: Simone Vazquez MD Primary care physician: VIRY PRIMARY CARE PROVIDER Hospital Course - Lab Results Lab Results: Micro Results 03/06/17 11:30 Stool C. difficile Antigen & Toxin A,B (M - Final Most Recent Lab Values WBC 14.0 10^3/ul (4.5-11.0) H 03/07/17 06:45 RBC 4.00 10^6/uL (3.5-6.1) 03/07/17 06:45 Hgb 10.8 g/dL (12.0-16.0) L 03/07/17 06:45 Hct 36.2 % (36.0-48.0) 03/07/17 06:45 MCV 90.5 fl (80.0-105.0) 03/07/17 06:45 MCH 27.0 pg (25.0-35.0) 03/07/17 06:45 MCHC 29.8 g/dl (31.0-37.0) L 03/07/17 06:45 RDW 14.1 % (11.5-14.5) 03/07/17 06:45 Plt Count 296 10^3/uL (120.0-450.0) 03/07/17 06:45 MPV 10.1 fl (7.0-11.0) 03/07/17 06:45 Gran % 80.4 % (50.0-68.0) H 03/07/17 06:45 Lymph % (Auto) 12.1 % (22.0-35.0) L 03/07/17 06:45 [place] % (Auto) 6.9 % (1.0-6.0) H 03/07/17 06:45 Eos % (Auto) 0.5 % (1.5-5.0) L 03/07/17 06:45 Baso % (Auto) 0.1 % (0.0-3.0) 03/07/17 06:45 Gran # 11.22 (1.4-6.5) H 03/07/17 06:45 Lymph # 1.7 (1.2-3.4) 03/07/17 06:45 [place] # 1.0 (0.1-0.6) H 03/07/17 06:45 Eos # 0.1 (0.0-0.7) 03/07/17 06:45 Baso # 0.02 K/mm3 (0.0-2.0) 03/07/17 06:45 PT 13.0 SECONDS (9.4-12.5) H 03/01/17 11:35 INR 1.13 (0.93-1.08) H 03/01/17 11:35 APTT 32.9 Seconds (25.1-36.5) 03/01/17 11:35 Sodium 139 mmol/L (132-148) 03/07/17 06:45 Potassium 4.1 mmol/L (3.6-5.0) 03/07/17 06:45 Chloride 103 mmol/L (98-107) 03/07/17 06:45 Carbon Dioxide 29 mmol/L (21-33) 03/07/17 06:45 Anion Gap 10 (10-20) 03/07/17 06:45 BUN 3 mg/dL (7-21) L 03/07/17 06:45 Creatinine 0.4 mg/dl (0.7-1.2) L 03/07/17 06:45 Est GFR ( Amer) > 60 03/07/17 06:45 Est GFR (Non-Af Amer) > 60 03/07/17 06:45 Random Glucose 99 mg/dL (70-110) 03/07/17 06:45 Hemoglobin A1c 6.0 % (4.2-6.5) 03/01/17 08:00 Calcium 8.0 mg/dL (8.4-10.5) L 03/07/17 06:45 Magnesium 1.8 mg/dL (1.7-2.2) 02/28/17 22:13 Total Bilirubin 0.6 mg/dL (0.2-1.3) 03/07/17 06:45 AST 27 U/L (14-36) 03/07/17 06:45 ALT 18 U/L (7-56) 03/07/17 06:45 Alkaline Phosphatase 74 U/L (38-126) 03/07/17 06:45 Lactate Dehydrogenase 423 U/L (333-699) 02/28/17 22:13 Total Creatine Kinase 42 U/L (35-230) 02/28/17 22:13 Troponin I < 0.01 ng/mL 03/02/17 07:00 Total Protein 6.8 g/dL (5.8-8.3) 03/07/17 06:45 Albumin 3.0 g/dL (3.0-4.8) 03/07/17 06:45 Globulin 3.9 gm/dL 03/07/17 06:45 Albumin/Globulin Ratio 0.8 (1.1-1.8) L 03/07/17 06:45 Triglycerides 101 mg/dL (35-160) 03/01/17 08:00 Cholesterol 128 mg/dL (130-200) L 03/01/17 08:00 LDL Cholesterol Direct 72 mg/dL (0-129) 03/01/17 08:00 HDL Cholesterol 34 mg/dL (29-60) 03/01/17 08:00 Lipase 81 U/L (23-300) 02/28/17 22:13 TSH 3rd Generation 3.80 mIU/mL (0.46-4.68) 03/01/17 08:00 Urine Color Yellow (YELLOW) 03/02/17 15:30 Urine Appearance Clear (CLEAR) 03/02/17 15:30 Urine pH 7.0 (4.7-8.0) 03/02/17 15:30 Ur Specific [place] 1.010 (1.005-1.035) 03/02/17 15:30 Urine Protein Negative mg/dL (<30 mg/dL) 03/02/17 15:30 Urine Glucose (UA) Negative mg/dL (NEGATIVE) 03/02/17 15:30 Urine Ketones Negative mg/dL (NEGATIVE) 03/02/17 15:30 Urine Blood Negative (NEGATIVE) 03/02/17 15:30 Urine Nitrate Negative (NEGATIVE) 03/02/17 15:30 Urine Bilirubin Negative (NEGATIVE) 03/02/17 15:30 Urine Urobilinogen 0.2 E.U./dL (<1 E.U./dL) 03/02/17 15:30 Ur Leukocyte Esterase Trace Tammy/uL (NEGATIVE) H 03/02/17 15:30 Urine RBC 0 - 2 /hpf (0-2) 03/02/17 15:30 Urine WBC 1 - 3 /hpf (0-6) 03/02/17 15:30 Ur Epithelial Cells 1 - 3 /hpf (0-5) 03/02/17 15:30 Urine Bacteria Rare (NEG) 03/02/17 15:30 Attending/Attestation - Attestation I have personally seen and examined this patient.: Yes I have fully participated in the care of the patient.: Yes I have reviewed all pertinent clinical information, including history, physical exam and plan: Yes Notes (Text): I have seen and examined the patient at bedside. Agree with the above note with the following additions/ exceptions: Briefly this is 61 year old female with history of HTN, hypothyroidism, morbid obesity who was admitted with acute on chronic cholecystitis. She underwent cholecystectomy and TEJAS. Patient complained of discomfort and nausea yesterday which has resolved. She had 2 BM yesterday and has passed gas. She is able to eat without any problem.Most likely pain was secondary to surgery and TEJAS. Patient has been afebrile. Leukocytosis has improved slightly. Will recommend repeat CBC in 1 week. Continue antibiotics for 1 more week because as per surgery team gall bladder was very inflamed. Continue levothyroxine. Upon discharge patient will follow up with PMD of choice or [facility] clinic. Dr Simone Vazquez
[2017-03-07 18:57] VITALS: BP 123/62; TEMP 98.2; O2SAT 95
--- NOTE | 2017-03-08 12:48 | NM ---
PROCEDURE: Nuclear Medicine Hepatobiliary Scan HISTORY: rule out bile leak COMPARISON: None available. TECHNIQUE: 6.2 mCi of technetium 99m Mebrofenin was administered intravenously. Planar images of the abdomen were obtained at 5 min intervals to 60 mins. Delayed images were also obtained. FINDINGS: LIVER: Timely and homogenous uptake. COMMON BILE DUCT: identified at 16 mins. GALLBLADDER: Removed SMALL BOWEL: Identified at 20 mins. IMPRESSION: No evidence of biliary leak
== END 2017-03-07 21:00 | disposition home or self-care (01) | DRG 494 ==
LOC: ED 20:56 → ERH 03-01 02:44 → 5RNO 03-01 04:33 → 3RSO 03-03 18:37 → 5RSO 03-04 19:19
PROVIDERS: ADMIT Internal Medicine; ATTEND Hospitalist
PROC: 0FT44ZZ Resection of Gallbladder, Percutaneous Endoscopic Approach (ICD-10-PCS; principal; 2017-03-03 11:30)
DX: K80.12 Calculus of gallbladder with acute and chronic cholecystitis without obstruction (principal); E66.01 Morbid (severe) obesity due to excess calories; E03.9 Hypothyroidism, unspecified; I10 Essential (primary) hypertension; J45.909 Unspecified asthma, uncomplicated; R50.9 Fever, unspecified; R94.31 Abnormal electrocardiogram [ECG] [EKG]; Z88.6 Allergy status to analgesic agent; Z68.41 Body mass index [BMI] 40.0-44.9, adult